=== PATIENT | female | born 1990 | race Caucasian/White ===

== ENCOUNTER → 2018-04-20 | Outpatient (CLI) | payer OTHER | END | disposition home or self-care (01) | LOC: C.LABSPEC 17:46 | PROVIDERS: ATTEND Obstetrics & Gynecology | DX: Z34.01 Encounter for supervision of normal first pregnancy, first trimester (principal) ==

== ENCOUNTER → 2018-04-28 | Outpatient (CLI) | payer OTHER ==
[2018-04-28 14:33] LABS: BASO % 0.3 %; BASO ABS # 0.03 K/uL (0-0.2); EOS % 0.4 %; EOS ABS # 0.04 K/uL (0-0.5); HEMATOCRIT 36.1 % (37-47); HEMOGLOBIN 12.6 g/dL (12.0-16.0); IG# 0.03 K/uL (0.00-0.02); LYMPH % 20.9 %; LYMPH ABS # 2.36 K/uL (1.2-3.4); MEAN CELL VOLUME 88.5 fL (80-100); MEAN CORPUSCULAR HEMOGLOBIN 30.9 pg (25-34); MEAN CORPUSCULAR HGB CONC 34.9 g/dl (32-36); MEAN PLATELET VOLUME 10.2 fL (7.4-10.4); MONO % 6.2 %; NEUT % 71.9 %; NEUT ABS # 8.14 K/uL (1.4-6.5); PLATELET COUNT 346 K/uL (130-400); RED CELL DISTRIBUTION WIDTH CV 12.5 % (11.5-14.5); RED CELL DISTRIBUTION WIDTH SD 40.6 fL (36.4-46.3)
== END | disposition home or self-care (01) ==
LOC: C.LAB1850 12:47
PROVIDERS: ATTEND Obstetrics & Gynecology
DX: Z34.01 Encounter for supervision of normal first pregnancy, first trimester (principal)

== ENCOUNTER → 2018-04-28 | Outpatient (CLI) | payer OTHER | END | disposition home or self-care (01) | LOC: C.LABSPEC 16:26 | PROVIDERS: ATTEND Obstetrics & Gynecology | DX: Z34.01 Encounter for supervision of normal first pregnancy, first trimester (principal) ==

== ENCOUNTER 2018-12-11 07:29 | Inpatient (IN) ==
[2018-12-11] MEDS ORDERED: LACTATED RINGER'S 1,000 ML IV PRN ×3 (07:41→13:13)
[2018-12-11] MEDS ORDERED: OXYTOCIN 30 UNITS/500 ML BAG IV PRN ×2 (07:41→08:53)
--- NOTE | 2018-12-11 07:54 | Labor Progress Brief Note ---
Date of Service December 11, 2018 Subjective Here for IOL for PD's. Had baez last night, which just fell out here upon readmission. No ctx, +FM, no LOF or VB. Assessment & Plan (1) Prolonged , antepartum: For IOL. GBS neg, Rh pos. Will start pitocin. Epidural on request. Physical Exam Vital Signs (Past 24 Hours): Last Vital Signs Pulse 91 H 12/11/18 07:45 BP 127/80 12/11/18 07:45 Physical Exam: Gen NAD Abd Gravid NT Cvx 4/90/-3/soft/post FHT Cat 1 [place] rare ctx
--- NOTE | 2018-12-11 08:05 | History & Physical Report ---
Date of Service December 11, 2018 Assessment & Plan (1) Prolonged , antepartum: -Fetus currently category 1 tracing. We will continue to monitor. -Currently 4 cm dilated. We will start oxytocin per regular protocol. -Vitals currently within normal limits. We will continue to monitor. - hemorrhage risk considered at low risk. We will collect a CBC, type and screen and will continue to monitor. -Plan for . A+, Rubella Immune, GBS - History of Present Illness Primary Care Provider: [facility] PCP DATE OF ADMISSION: 12/11/2018 REASON FOR ADMISSION: Induction of labor. BRIEF HISTORY: 28 y/o , currently at 40 weeks 6 days gestational age with LARISA of 12/04/2018 by LMP consistent with first trimester ultrasound. The patient presented to labor and delivery for a scheduled induction of labor. She presented yesterday evening for cervical ripening via Khan balloon and then was sent home and represents today. At time of admission, the patient was denying any regular contractions, vaginal bleeding, leakage of fluid, and reported normal movement. COURSE: The patient presented for care at approximately 8 weeks' gestational age. She has been normotensive throughout. She has negative proteinuria, negative glucosuria, total weight gain for the is approximately 64 pounds. COMPLICATIONS: None. LABS: Blood type A positive, antibody screen negative, RPR nonreactive, rubella immune, hep B surface antigen negative, HIV negative, chlamydia negative, gonorrhea negative. Anatomy scan normal and complete. Cell free DNA within normal limits. Hep group B strep negative. GYNECOLOGIC HISTORY: LMP 02/28/2018, age of menarche 9. The patient reports regular 28 day cycles with normal duration and quantity of menses within last year, prior h/o irregular menses. Denies any history of sexually transmitted infections or abnormal PAPs. PAST MEDICAL HISTORY: Unremarkable. PAST SURGICAL HISTORY: Wound Debridement b/l legs in 2011. MEDICATIONS: 1. Iron Tabs 2. vitamin 3) Unisom prn ALLERGIES: NKDA SOCIAL HISTORY: The patient denies tobacco, alcohol use, or illicit drug use. FAMILY HISTORY: FOB: Immune Skin Disorder, cousin with cerebral palsy. Father, PGM, PGF: HTN, HLD, DM. Allergies Allergy/AdvReac Type Severity Reaction Status Date / Time No Known Allergies Allergy Verified 10/04/18 16:30 Home Medications Home Medications Medication Instructions Recorded Confirmed Type [id number] fumarate-FA 1 tab PO DAILY 10/04/18 12/10/18 History [] diphenhydramine HCl [Unisom 50 mg PO HS PRN 10/04/18 12/10/18 History Sleepgels] ferrous sulfate [iron] 325 mg PO 3XWK 10/04/18 12/10/18 History Past Med/Surg History Medical History No pertinent past medical history Social History Preferred Language: [place] Zealander Communication Ability: Effective Beliefs That Will Affect Care: None marital status: Current Living Situation: Family Current Living Situation Comment: and stepdaughter (14yo) Other Information That Helps Us Care for You: No Feels Safe at Home: Yes Safety Concerns: Feels Safe At This Time Smoking Status: Never smoker Hx Alcohol Use: No Hx Substance Use: No Physical Exam Vital Signs (Past 24 Hours): Last Vital Signs Pulse 91 H 12/11/18 07:45 BP 127/80 12/11/18 07:45 Constitutional: WD/WN, vitals as above Eyes: PERRL, conjunctivae normal, anicteric sclerae ENMT: external ear and nose normal, oropharynx normal Respiratory: normal respiratory effort, lungs clear to auscultation Cardiovascular: RRR, no murmur, no edema Gastrointestinal (Abdomen): Soft, nontender, gravid Skin: no rashes, warm and dry Psychiatric: A+Ox3, euthymic affect Genitourinary: 4 cm dilated, 90% effaced, -3 station Results & Data Laboratory Results Laboratory Results - last 24 hr 12/11/18 07:52 WBC 12.89 H RBC 4.01 L Hgb 12.2 Hct 34.8 L MCV 86.8 MCH 30.4 RDW Std Deviation 44.2 RDW Coeff of Maggy 14.0 Plt Count 297 MPV 10.3 Medications Administered Current Inpatient Medications Lactated Ringer's (Lr) 1,000 mls @ 999 mls/hr IV .Q1H1M PRN PRN Reason: (Pre-Anesthesia) Stop: 01/10/19 07:40 Lactated Ringer's (Lr) 1,000 mls @ 125 mls/hr IV .Q8H HAYDEN Stop: 12/13/18 07:44 Oxytocin (Pitocin) 30 units in 500 mls @ 333.333 mls/hr IV .Q1H30M PRN; Protocol PRN Reason: Bleeding Control Stop: 01/10/19 07:40 Code Status & VTE Plan Code Status FULL Resident Activity Tracking Resident Involvement: Resident Care Provided Care Provided: OB Delivery
[2018-12-11 08:14] LABS: Hematocrit (blood only) 34.8 % (37-47); Hemoglobin 12.2 g/dL (12.0-16.0); Mean Corpuscular Volume 86.8 fL (80-100); Mean Platelet Volume 10.3 fL (7.4-10.4); Platelet Count 297 K/uL (130-400); RDW Standard Deviation 44.2 fL (36.4-46.3); Red Blood Count 4.01 M/uL (4.2-5.4); White Blood Count 12.89 K/uL (4.8-10.8)
[2018-12-11 08:16] LABS: Mean Corpuscular Hgb Conc 35.1 g/dL (32-36)
[2018-12-11] MEDS: LACTATED RINGER'S 1,000 ML IV SCH ×4 (08:45→22:39)
[2018-12-11] MEDS ORDERED: ePHEDrine sulfate 50 MG/ML AMP ONE (11:32)
[2018-12-11] MEDS ORDERED: BUPIVACAINE 0.25% 30 ML VIAL ONE (11:32)
[2018-12-11] MEDS ORDERED: fentaNYL citrate 100 MCG/2 ML VIAL ONE (11:33)
[2018-12-11] MEDS ORDERED: fentaNYL 2MCG/ML ROPIV 1.25MG/ML 100 ML BAG EPI ONE (11:33)
--- NOTE | 2018-12-11 11:56 | Anesthesiology Consultation ---
Date of Service December 11, 2018 Assessment & Plan (1) Encounter for pre-operative examination: Chart Review Chart Review: Patient NOT seen in Pre Admission Testing and Acceptable Risk for Labor Epidural Consults Requested none ASA ASA2 Proposed Anesthesia Anesthesia Type: Labor Epidural Risk / Benefits Reviewed With: PT / POA / Parent / Guardian, Accepts Plan and Informed Consent Obtained NPO Date Last Intake of Fluids: 12/10/18 Time Last Intake of Fluids: 11:56 Date Last Intake of Solids: 12/10/18 Time Last Intake of Solids: 06:15 History Height/Weight Height: 5 ft 9 in Weight: 119.204 kg Allergies Allergy/AdvReac Type Severity Reaction Status Date / Time No Known Allergies Allergy Verified 10/04/18 16:30 Medications Home Medications Medication Instructions Recorded Confirmed Last Taken [id number] fumarate-FA 1 tab PO DAILY 10/04/18 12/11/18 12/11/18 06:00 [] diphenhydramine HCl [Unisom 50 mg PO HS PRN 10/04/18 12/11/18 12/10/18 21:00 Sleepgels] ferrous sulfate [iron] 325 mg PO 3XWK 10/04/18 12/11/18 12/11/18 Active Medications Generic Name Dose Route Start Last Admin Trade Name Freq PRN Reason Stop Dose Admin Lactated Ringer's 1,000 mls @ 125 mls/hr 12/11/18 07:45 12/11/18 12:19 Lr IV 12/13/18 07:44 125 mls/hr .Q8H HAYDEN Administration Oxytocin 30 units in 500 mls @ 7 mls/hr 12/11/18 08:53 12/11/18 12:15 Pitocin IV 12/13/18 08:52 0.42 units/hr .Q24H PRN 7 mls/hr Labor Induction/Augmentation Titration Protocol 0.42 UNITS/HR Past Medical History Medical History Back pain History of injury to L3/L4 and S1 after injury at work. Per pt - neurologist said back was deteriorating No pertinent past medical history Past Surgical History Surgical History History of incision and drainage Legs Past Anesthesia History No Hx of Anesthesia Complications History of PONV No Motion Sickness Screening History of Motion Sickness: No Social History Smoking Status: Never smoker Do You Dip or Chew Tobacco: No Hx Alcohol Use: No Hx Substance Use: No substance use type: does not use Exercise / Class Metabolic Activity III < 4 Walking/Shop/Light housework Negative for chest pain or shortness of breath. Review of Systems Patient denies active symptoms of GERD. Physical Exam Vital Signs Last Vital Signs Temp 36.7 C 12/11/18 11:14 Pulse 67 12/11/18 12:59 Resp 20 12/11/18 11:14 BP 119/74 12/11/18 12:59 Pulse Ox 99 12/11/18 12:55 Constitutional + obese (Gravid uterus) ENMT Mouth: no TMJ abnormality and oral opening not small Thyromental Distance: > or= 3.5 Finger Breadths Mallampati Class: II Neck normal visual inspection; neck extension not limited Respiratory normal respiratory effort Auscultation: lungs clear to auscultation bilaterally Cardiovascular Rate/Rhythm: regular rate and regular rhythm Heart Sounds: no murmur Psychiatric A+Ox3, euthymic affect Orientation: alert and oriented x 3 Testing Laboratory Results 12/11/18 07:52
[2018-12-11] MEDS ORDERED: NALBUPHINE HCL INJ 10 MG/ML AMP IV PRN (13:13)
[2018-12-11] MEDS ORDERED: ePHEDrine sulfate 50 MG/ML AMP IV PRN (13:13)
[2018-12-11] MEDS ORDERED: NALOXONE HCL 1 MG in SODIUM CHLORIDE 0.9% 1000ML 1,000 ML IV PRN (13:13)
[2018-12-11] MEDS ORDERED: ONDANSETRON INJ 2 MG/ML 2 ML VIAL IV PRN (13:13)
[2018-12-11] MEDS ORDERED: NALOXONE HCL 0.4 MG/1 ML VIAL/CARP IV PRN (13:13)
[2018-12-11] MEDS ORDERED: DiphenhydrAMINE HCL 50 MG/ML VIAL IV PRN (13:13)
[2018-12-11] MEDS ORDERED: fentaNYL 2MCG/ML ROPIV 1.25MG/ML 100 ML BAG EPI PRN (13:13)
--- NOTE | 2018-12-11 17:33 | Labor Progress Brief Note ---
Date of Service December 11, 2018 Subjective Comfortable after epidural bolus. Very numb legs. Vaginal burning pain has stopped. Assessment & Plan (1) Prolonged , antepartum: Continue IOL Physical Exam Vital Signs (Past 24 Hours): Last Vital Signs Temp 36.7 C 12/11/18 15:20 Pulse 88 12/11/18 17:27 Resp 18 12/11/18 15:20 BP 113/57 L 12/11/18 17:27 Pulse Ox 99 12/11/18 17:25 Physical Exam: 5/100/-1 FHT Cat 2 with intermittent late ctx since bolus [place] Q3
--- NOTE | 2018-12-11 20:10 | Labor Progress Brief Note ---
Date of Service December 11, 2018 Subjective Comfortable with spidural (placed intrathecally and remains in place, see anesthesia notes) Assessment & Plan (1) Prolonged , antepartum: No cervical change, but room to increase pitocin to achieve Q2min pattern. Will continue to titrate. Present on Admission?: Yes Physical Exam Vital Signs (Past 24 Hours): Last Vital Signs Temp 36.6 C 12/11/18 17:30 Pulse 91 H 12/11/18 20:05 Resp 20 12/11/18 19:15 BP 126/74 12/11/18 20:02 Pulse Ox 100 12/11/18 20:05 Physical Exam: Cervix unchanged. [place] Q2.5-3 FHT Cat 1 (150 mod catherine +acc - dec) Pit @ 13
[2018-12-11] MEDS ORDERED: ACETAMINOPHEN 325 MG TAB PO PRN (20:18)
[2018-12-11] MEDS ORDERED: ACETAMINOPHEN 325 MG TAB ONE (20:24)
--- NOTE | 2018-12-11 21:45 | Labor Progress Brief Note ---
Date of Service December 11, 2018 Subjective Strip reviewed, RN notes reviewed. Physical Exam Vital Signs (Past 24 Hours): Last Vital Signs Temp 36.7 C 12/11/18 19:18 Pulse 96 H 12/11/18 21:40 Resp 18 12/11/18 21:30 BP 137/67 12/11/18 21:40 Pulse Ox 98 12/11/18 21:40
--- NOTE | 2018-12-12 00:35 | Labor Progress Brief Note ---
Date of Service December 12, 2018 Subjective Feeling back ache, states does not like the bed, declines pain medicine Assessment & Plan (1) Prolonged , antepartum: Progress noted on cervical exam. Patient with acceptable analgesia and de clining further bolus at this time. IUPC placed given contraction pattern not consistently Q2min despite pit @ 21. The MVU initially appear adequate. Will aim for 250 MVU, doubt increase in pitocin will be needed. If MVU significantly above goal would consider decreasing pitocin; d/w GERONIMO Can to notify me if this occurs. Physical Exam Vital Signs (Past 24 Hours): Last Vital Signs Temp 36.4 C L 12/11/18 22:11 Pulse 75 12/12/18 00:29 Resp 18 12/11/18 23:30 BP 149/84 H 12/12/18 00:29 Pulse Ox 98 12/12/18 00:25 Physical Exam: FHT Cat 1 [place] irregular, Q2-4m Cvx 6/100/+1 (feels to be significantly lower station than prior exam, and now cervix firmly stretched over head to 6cm, whereas last exam it was stretchable to 6cm by examiner but far less well applied to vertex). IUPC placed after discussion of r/b/a with patient and family. Initial MVU adequate, pit remains at 21.
[2018-12-12] MEDS ORDERED: BUPIVACAINE 0.25% 30 ML VIAL ONE (01:24)
[2018-12-12] MEDS: LACTATED RINGER'S 1,000 ML IV SCH ×2 (01:59→09:47)
--- NOTE | 2018-12-12 04:01 | Labor Progress Brief Note ---
Date of Service December 12, 2018 Subjective Patient with shivering and c/o upper back pain and not feeling well. Assessment & Plan (1) Prolonged , antepartum: Pit @ 21, MVU adequate, cervical progress continues. Patient with shivers that appear c/w entering transition, not a/w maternal fever, and pelvic discomfort that is likely associated with end of first stage labor as well. Declines additional bolus at this time, will accept tylenol for upper back and BAEZ that she again attributes to not finding the bed or position comfortable. Accepts warm blanket and repositioning assistance. Physical Exam Vital Signs (Past 24 Hours): Last Vital Signs Temp 36.8 C 12/12/18 01:34 Pulse 99 H 12/12/18 03:51 Resp 18 12/12/18 03:01 BP 141/92 H 12/12/18 03:50 Pulse Ox 100 12/12/18 03:51 Physical Exam: Maternal temp afebrile. FHT 130 mod catherine +acc +early decels [place] Q3-5 but individual contractions quite strong. Cvx 8/100/+1
--- NOTE | 2018-12-12 05:21 | Labor Progress Brief Note ---
Date of Service December 12, 2018 Subjective Continues to feel shaky, lots of upper back ache, pelvic ache. BAEZ improved. Assessment & Plan (1) Prolonged , antepartum: Labor progressing, not quite ready for second stage but close. FHT Cat 1 with early decels during contractions. BP noted to record likely spurious high value. BAEZ could be due to many factors including position, body tension / high patient anxiety through the labor p rocess, spinal; difficult to tell. DTRs normal. No other s/sx of PIH such as RUQ pain, vision changes or worsening edema. However, with BP noted and BAEZ noted, will send PIH labs. Physical Exam Vital Signs (Past 24 Hours): Last Vital Signs Temp 36.8 C 12/12/18 01:34 Pulse 75 12/12/18 05:11 Resp 18 12/12/18 04:30 BP 168/82 H 12/12/18 05:07 Pulse Ox 99 12/12/18 05:11 Physical Exam: Sitting semi-cotto's, FOB at bedside. Cvx ant lip / 100 / +2 Unable to push past lip. BP noted to record a very high value of 220s/120s during patient shivering. Recycled cuff 160s/80s with patient still shivering. DTR 1+
[2018-12-12 05:41] LABS: Basophils # (auto) 0.02 K/uL (0-0.2); Basophils % (auto) 0.1 %; Eosinophils # (auto) 0.03 K/uL (0-0.5); Eosinophils % (auto) 0.2 %; Hematocrit (blood only) 34.9 % (37-47); Immature Granulocytes # (auto) 0.09 K/uL (0.00-0.02); Immature Granulocytes % (auto) 0.5 %; Lymphocytes # (auto) 1.25 K/uL (1.2-3.4); Lymphocytes % (auto) 6.5 %; Mean Corpuscular Volume 86.4 fL (80-100); Mean Platelet Volume 10.4 fL (7.4-10.4); Monocytes # (auto) 1.45 K/uL (0.11-0.59); Monocytes % (auto) 7.5 %; Neutrophils # (auto) 16.45 K/uL (1.4-6.5); Neutrophils % (auto) 85.2 %; Platelet Count 290 K/uL (130-400); RDW Coefficient of Variation 14.3 % (11.5-14.5); Red Blood Count 4.04 M/uL (4.2-5.4); White Blood Count 19.29 K/uL (4.8-10.8)
[2018-12-12 05:47] LABS: Mean Corpuscular Hgb Conc 34.4 g/dL (32-36)
[2018-12-12 06:04] LABS: Albumin Level 2.5 gm/dl (3.4-5.0); BUN Creatinine Ratio 13.2 (10-20); Calcium 8.6 mg/dl (8.5-10.1); Creatinine Clr Calc Pharmacy 136.7 ml/min; Est GFR (African American) 109.7; Est GFR (Non-African American) 94.6; Potassium 4.1 mmol/L (3.5-5.1)
[2018-12-12 06:07] LABS: Albumin Globulin Ratio 0.6 (0.9-2); Bilirubin,Total 0.5 mg/dl (0.2-1); Globulin 4.4 gm/dl (2.5-4.0); Total Protein 6.9 gm/dl (6.4-8.2)
--- NOTE | 2018-12-12 06:30 | Labor Progress Brief Note ---
Date of Service December 12, 2018 Subjective Feeling urge to push. BAEZ improved. Back pain and pelvic pressure continue. No c/o vis chg, RUQ pain. Assessment & Plan (1) Prolonged , antepartum: Begin second stage of labor. Anterior lip remaining behind vertex after first few test pushes. FHT reassuring and c/w second stage. Dr. Chinchilla updated on patient having headache, tolerable with tylenol, and vitals/labs. Physical Exam Vital Signs (Past 24 Hours): Last Vital Signs Temp 36.8 C 12/12/18 01:34 Pulse 68 12/12/18 06:23 Resp 18 12/12/18 05:31 BP 139/63 12/12/18 06:21 Pulse Ox 94 12/12/18 06:23 Physical Exam: FHT 140 mod maggy +acc +variable with pushes [place] Q2-5 IUPC was noted to have been displaced nearly out of the cervix entirely. Removed and replaced abdominal monitor. Cvx lip/100/+2 and lip reduces behind head with pushing attempt. Vitals reviewed - BP 139/63, much improved. Normal resp rate. Labs reviewed - no evidence PIH. Leukocytosis c/w labor. Results & Data Laboratory Results Laboratory Results - last 24 hr 12/11/18 12/12/18 12/12/18 07:52 05:23 05:23 WBC 12.89 H 19.29 H RBC 4.01 L 4.04 L Hgb 12.2 12.0 Hct 34.8 L 34.9 L MCV 86.8 86.4 MCH 30.4 29.7 MCHC 35.1 34.4 RDW Std Deviation 44.2 45.0 RDW Coeff of Maggy 14.0 14.3 Plt Count 297 290 MPV 10.3 10.4 Immature Gran % (Auto) 0.5 Neut % (Auto) 85.2 Lymph % (Auto) 6.5 [place] % (Auto) 7.5 Eos % (Auto) 0.2 Baso % (Auto) 0.1 Immature Gran # (Auto) 0.09 H Neut # (Auto) 16.45 H Lymph # (Auto) 1.25 [place] # (Auto) 1.45 H Eos # (Auto) 0.03 Baso # (Auto) 0.02 Sodium 137 Potassium 4.1 Chloride 106 Carbon Dioxide 21 Anion Gap 10.0 BUN 11 Creatinine 0.83 Est Cr Clr Drug Dosing 136.7 Est GFR ( Amer) 109.7 Est GFR (Non-Af Amer) 94.6 BUN/Creatinine Ratio 13.2 Glucose 113 H Calcium 8.6 Total Bilirubin 0.5 AST 15 ALT 17 Alkaline Phosphatase 145 H Total Protein 6.9 Albumin 2.5 L Globulin 4.4 H Albumin/Globulin Ratio 0.6 L
--- NOTE | 2018-12-12 07:43 | Labor Progress Brief Note ---
Date of Service December 12, 2018 Subjective Pushing with good effort. Assessment & Plan (1) Prolonged , antepartum: Second stage effective, status acceptable to continue. Physical Exam Vital Signs (Past 24 Hours): Last Vital Signs Temp 37.2 C 12/12/18 07:19 Pulse 82 12/12/18 07:36 Resp 22 12/12/18 07:19 BP 149/70 H 12/12/18 07:06 Pulse Ox 97 12/12/18 07:36 Physical Exam: Patient reassessed at 0645 and again at 0730. Both times has made progress from prior check. At last exam, scalp visible when labia parted. FHT baseline 165 with variables during pushing, moderate variability and accels remain present.
--- NOTE | 2018-12-12 08:04 | Labor Progress Brief Note ---
Date of Service December 12, 2018 Subjective pushing well Assessment & Plan (1) Prolonged , antepartum: Progress continues. FHT acceptable for second stage. Physical Exam Vital Signs (Past 24 Hours): Last Vital Signs Temp 37.2 C 12/12/18 07:19 Pulse 81 12/12/18 07:56 Resp 22 12/12/18 07:19 BP 142/67 H 12/12/18 07:56 Pulse Ox 98 12/12/18 07:56 Physical Exam: FHT 165 mod catherine +acc +variables with pushes [place] Q2-3 scalp now visible between labia without touching or parting maternal skin during pushes.
[2018-12-12] MEDS ORDERED: COSYNTROPIN IV ONE (08:45)
[2018-12-12] MEDS ORDERED: LACTATED RINGER'S 1,000 ML IV SCH ×3 (08:45→10:53)
[2018-12-12] MEDS ORDERED: SODIUM CHLORIDE 0.9% IV ONE (08:45)
--- NOTE | 2018-12-12 08:52 | Labor Progress Brief Note ---
Date of Service December 12, 2018 Subjective Patient stating she is too exhausted to continue pushing, refusing to make further efforts. Assessment & Plan (1) Prolonged , antepartum: IOL achieved complete dilation, second stage 2.25 hours brought caput to but in DOP position, and head remains displaceable upwards, and mom exhausted without willingness to continue. At this point options reviewed with patient including continue to push or move to , and she immediately states she wants to proceed to . Consent form reviewed in detail with patient and FOB, questions answered. Physical Exam Vital Signs (Past 24 Hours): Last Vital Signs Temp 37.2 C 12/12/18 07:19 Pulse 84 12/12/18 08:42 Resp 22 12/12/18 07:19 BP 126/70 12/12/18 08:37 Pulse Ox 97 12/12/18 08:42 Physical Exam: scalp remains visible 1cm wide at the most between labia with pushes. However, palpation shows significant caput. Fetus in DOP position. Fluid leakage remains clear, and in particular it is noted that head can be displaced upwards allowing a flow of amniotic fluid relatively easily. FHT 170 mod catherine +acc -dec after pushing stopped Pit turned off [place] q3
[2018-12-12] MEDS ORDERED: MoRPHine SULFATE PF 1 MG/ML 10 ML AMP/VIAL ONE (08:58)
[2018-12-12] MEDS ORDERED: OXYTOCIN 10 UNITS/ML VIAL ONE (08:58)
[2018-12-12] MEDS ORDERED: fentaNYL citrate 100 MCG/2 ML VIAL ONE (08:58)
[2018-12-12] MEDS ORDERED: CITRIC ACID/SODIUM CITRATE 15 ML UDC ONE (08:59)
[2018-12-12] MEDS ORDERED: CEFAZOLIN 3000MG 65 ML IV SCH (09:00)
[2018-12-12] MEDS ORDERED: ONDANSETRON INJ 2 MG/ML 2 ML VIAL ONE (09:27)
[2018-12-12] MEDS ORDERED: LACTATED RINGER'S 500 ML IV PRN (09:35)
[2018-12-12] MEDS ORDERED: NALOXONE HCL 0.4 MG/1 ML VIAL/CARP IV PRN (09:35)
[2018-12-12] MEDS ORDERED: PROMETHAZINE HCL 12.5 MG in SODIUM CHLORIDE 0.9% 50 ML IV PRN (09:35)
[2018-12-12] MEDS ORDERED: MoRPHine SULFATE PF 1 MG/ML 10 ML AMP/VIAL INT SPINAL ONE (09:35)
[2018-12-12] MEDS ORDERED: NALOXONE HCL 0.08 MG in SYRINGE 1.8 ML IV PRN (09:35)
[2018-12-12] MEDS ORDERED: ATROPINE SULFATE 0.1 MG/ML 10ML SYR IV PRN (09:35)
[2018-12-12] MEDS ORDERED: PROMETHAZINE HCL 25 MG in SODIUM CHLORIDE 0.9% 50 ML IV PRN (09:35)
[2018-12-12] MEDS ORDERED: MoRPHine SULFATE 2 MG/ML CARP IV PRN (09:35)
[2018-12-12] MEDS ORDERED: PHENYLEPHRINE 100MCG/ML 5ML SYR IV PRN (09:35)
[2018-12-12] MEDS ORDERED: DiphenhydrAMINE HCL 50 MG/ML VIAL IV PRN (09:35)
[2018-12-12] MEDS ORDERED: NALOXONE HCL 1 MG in SODIUM CHLORIDE 0.9% 1000ML 1,000 ML IV PRN (09:35)
[2018-12-12] MEDS ORDERED: NALBUPHINE HCL INJ 10 MG/ML AMP IV PRN (09:35)
[2018-12-12] MEDS ORDERED: fentaNYL citrate 100 MCG/2 ML VIAL IV PRN (09:35)
[2018-12-12] MEDS ORDERED: ONDANSETRON INJ 2 MG/ML 2 ML VIAL IV PRN ×2 (09:35)
[2018-12-12] MEDS ORDERED: ePHEDrine sulfate 50 MG/ML AMP IV PRN ×2 (09:35)
--- NOTE | 2018-12-12 09:35 | Anesthesiology Consultation ---
Date of Service December 12, 2018 Assessment & Plan Chart Review Chart Review: Acceptable Risk for Surgery and Patient NOT seen in Pre Admission Testing Consults Requested none ASA ASA2E Proposed Anesthesia Anesthesia Type: Spinal (Pt with existing intrathecal catheter) Risk / Benefits Reviewed With: PT / POA / Parent / Guardian, Accepts Plan and Informed Consent Obtained NPO Date Last Intake of Fluids: 12/11/18 Time Last Intake of Fluids: 07:30 Last Intake of Fluids Comment: Ice chips Date Last Intake of Solids: 12/11/18 Time Last Intake of Solids: 23:59 History Surgery Operation Date: 12/12/18 09:00 Proposed Procedures p Section in LD - Inés Churchill MD Height/Weight Height: 1.75 m Weight: 119.204 kg Allergies Allergy/AdvReac Type Severity Reaction Status Date / Time No Known Allergies Allergy Verified 10/04/18 16:30 Medications Home Medications Medication Instructions Recorded Confirmed Last Taken [id number] fumarate-FA 1 tab PO DAILY 10/04/18 12/11/18 12/11/18 06:00 [] diphenhydramine HCl [Unisom 50 mg PO HS PRN 10/04/18 12/11/18 12/10/18 21:00 Sleepgels] ferrous sulfate [iron] 325 mg PO 3XWK 10/04/18 12/11/18 12/11/18 Active Medications Generic Name Dose Route Start Last Admin Trade Name Freq PRN Reason Stop Dose Admin Acetaminophen 650 mg 12/11/18 20:18 12/12/18 03:58 Tylenol PO 01/10/19 20:17 650 mg Q4H PRN Administration headache Lactated Ringer's 1,000 mls @ 125 mls/hr 12/11/18 07:45 12/12/18 07:00 Lr IV 01/11/19 07:44 125 mls/hr .Q8H HAYDEN Infusion Oxytocin 30 units in 500 mls @ 21 mls/hr 12/11/18 08:53 12/12/18 07:00 Pitocin IV 12/13/18 08:52 1.26 units/hr .[id number] PRN 21 mls/hr Labor Induction/Augmentation Titration Protocol 1.26 UNITS/HR Ondansetron HCl 4 mg 12/11/18 13:13 12/12/18 05:42 Zofran IV 12/12/18 13:12 4 mg Q6H PRN Administration Nausea And Vomiting Ropivacaine 100 ml 12/11/18 13:13 12/12/18 07:19 Epidural (L&D) EPI 12/12/18 13:12 100 ml PRN PRN Administration Pain R/T Labor Protocol Past Medical History Medical History Back pain History of injury to L3/L4 and S1 after injury at work. Per pt - neurologist said back was deteriorating No pertinent past medical history Past Surgical History Surgical History History of incision and drainage Legs Past Anesthesia History No Hx of Anesthesia Complications and No Family Hx of Anesthesia Complications History of PONV No Motion Sickness Screening History of Motion Sickness: No Social History Smoking Status: Never smoker Do You Dip or Chew Tobacco: No Hx Alcohol Use: No Hx Substance Use: No substance use type: does not use Exercise / Class Metabolic Activity III < 4 Walking/Shop/Light housework Physical Exam Vital Signs Last Vital Signs Temp 36.8 C 12/12/18 08:50 Pulse 84 12/12/18 08:57 Resp 22 12/12/18 08:50 BP 126/70 12/12/18 08:37 Pulse Ox 97 12/12/18 08:57 ENMT Mouth: no TMJ abnormality and no TMJ clicking Thyromental Distance: > or= 3.5 Finger Breadths Mallampati Class: II Neck normal visual inspection; neck extension not limited Respiratory Auscultation: lungs clear to auscultation bilaterally Cardiovascular Rate/Rhythm: regular rate and regular rhythm Musculoskeletal Spine: normal cervical ROM Psychiatric Orientation: alert and oriented x 3 Testing Laboratory Results 12/12/18 05:23 12/12/18 05:23
[2018-12-12] MEDS ORDERED: NO NARCOTICS OR SEDATIVES SCH (09:45)
[2018-12-12] MEDS ORDERED: SODIUM CHLORIDE 0.9% 1000ML 1,000 ML IV SCH (09:45)
--- NOTE | 2018-12-12 10:09 | Post Operative Brief Note ---
Immediate Post Op Note v1 Date of Surgery December 12, 2018 Pre & Post Diagnosis Operation Date: 12/12/18 09:00 <No data on this case meets the specified criteria> [facility]UP @ Post Term Induction of labor Failure to progress Maternal exhaustion Procedure Operation Date: 12/12/18 09:00 <No data on this case meets the specified criteria> Primary section with T-incision and L cervical extension. Patient accompanied to PACU by surgeon. Surgeon Inés Churchill MD Manufacturing Sr Engineer [place] Estimated Blood Loss 650 Findings Consistent with Post-Op Diagnosis
[2018-12-12] MEDS ORDERED: BENZOCAINE 20% AER SPR 82.5 GM CAN EXT PRN (10:53)
[2018-12-12] MEDS ORDERED: SUPERCREAM 0.870% 15 GM JAR EXT PRN (10:53)
[2018-12-12] MEDS ORDERED: MAGNESIUM HYDROXIDE SUSP 30 ML UDC PO PRN (10:53)
[2018-12-12] MEDS ORDERED: HYDROCORTISONE ACETATE 25 MG SUPP PR PRN (10:53)
[2018-12-12] MEDS ORDERED: SENNA 8.6 MG TAB PO PRN (10:53)
[2018-12-12] MEDS ORDERED: DIPHTHERIA/TETANUS/PERTUSSIS 0.5 ML SYR/VIAL IM ONE (10:53)
[2018-12-12] MEDS ORDERED: OXYTOCIN 30 UNITS in LACTATED RINGER'S 1,000 ML IV SCH (11:30)
--- NOTE | 2018-12-12 11:35 | Anesthesiology Progress Note ---
Date of Service December 12, 2018 Anesthesia Post Procedure Vital Signs Vital Signs: Temp Pulse Resp BP Pulse Ox 12/12/18 11:29 72 99 12/12/18 11:25 71 116/65 12/12/18 11:24 69 99 12/12/18 11:19 67 99 12/12/18 11:16 74 111/58 L 12/12/18 11:14 74 99 12/12/18 11:09 71 99 12/12/18 11:05 73 110/58 L 12/12/18 11:04 75 98 12/12/18 10:59 75 97 12/12/18 10:55 75 113/60 12/12/18 10:54 78 97 12/12/18 10:49 94 H 98 12/12/18 10:47 96 H 94 12/12/18 10:45 84 112/58 L 12/12/18 10:44 91 H 97 12/12/18 10:39 79 97 12/12/18 10:36 82 113/64 12/12/18 10:34 85 98 12/12/18 10:29 88 97 12/12/18 10:26 91 H 110/64 12/12/18 10:24 92 H 97 12/12/18 10:19 84 96 12/12/18 10:15 86 118/68 12/12/18 10:14 95 H 93 12/12/18 08:57 84 97 12/12/18 08:52 101 H 97 12/12/18 08:50 36.8 C 22 12/12/18 08:47 86 97 12/12/18 08:42 84 97 12/12/18 08:41 106 H 93 12/12/18 08:37 112 H 126/70 97 12/12/18 08:32 104 H 98 12/12/18 08:27 115 H 97 12/12/18 08:22 106 H 98 12/12/18 08:21 105 H 20 127/62 12/12/18 08:17 93 H 97 12/12/18 08:12 111 H 97 12/12/18 08:07 117 H 96 12/12/18 08:05 84 22 142/67 H 12/12/18 08:02 118 H 92 12/12/18 08:01 82 98 12/12/18 07:56 81 22 142/67 H 98 12/12/18 07:51 92 H 97 12/12/18 07:46 84 98 12/12/18 07:41 89 98 12/12/18 07:36 82 97 12/12/18 07:32 73 94 12/12/18 07:31 76 97 12/12/18 07:26 81 96 12/12/18 07:22 97 H 91 12/12/18 07:21 89 97 12/12/18 07:19 37.2 C 22 12/12/18 07:16 90 98 12/12/18 07:12 87 92 12/12/18 07:11 75 96 12/12/18 07:06 94 H 22 149/70 H 97 12/12/18 07:04 95 H 92 12/12/18 07:01 81 98 12/12/18 06:59 18 12/12/18 06:56 77 98 12/12/18 06:53 84 90 12/12/18 06:51 84 130/72 97 12/12/18 06:46 94 H 98 12/12/18 06:41 81 92 12/12/18 06:40 37.0 C 12/12/18 06:36 72 134/63 97 12/12/18 06:31 75 18 98 12/12/18 06:26 70 98 12/12/18 06:23 68 94 12/12/18 06:21 73 139/63 97 12/12/18 06:16 93 H 100 12/12/18 06:11 86 97 12/12/18 06:06 76 97 12/12/18 06:05 76 164/84 H 12/12/18 06:01 76 97 12/12/18 05:56 69 97 12/12/18 05:52 75 165/82 H 12/12/18 05:51 85 97 12/12/18 05:46 74 98 12/12/18 05:41 73 98 12/12/18 05:36 81 98 12/12/18 05:35 77 151/85 H 12/12/18 05:31 79 18 148/82 H 98 12/12/18 05:29 75 196/95 H 12/12/18 05:26 71 99 12/12/18 05:21 75 97 12/12/18 05:16 80 99 12/12/18 05:11 75 99 03/16/19 05:07 90 168/82 H 12/12/18 05:06 93 H 187/98 H 97 12/12/18 05:01 75 100 12/12/18 04:56 80 99 12/12/18 04:52 76 223/124 H 12/12/18 04:51 76 96 12/12/18 04:46 81 98 12/12/18 04:41 87 99 12/12/18 04:36 85 164/97 H 100 12/12/18 04:31 75 99 12/12/18 04:30 18 12/12/18 04:26 76 98 12/12/18 04:21 80 100 12/12/18 04:20 81 151/89 H 12/12/18 04:16 73 98 12/12/18 04:11 79 100 12/12/18 04:06 85 100 12/12/18 04:05 80 146/85 H 12/12/18 04:01 85 100 12/12/18 03:56 82 99 12/12/18 03:51 99 H 100 12/12/18 03:50 96 H 141/92 H 12/12/18 03:46 78 100 12/12/18 03:41 87 100 12/12/18 03:36 87 138/76 100 12/12/18 03:31 72 98 12/12/18 03:30 18 12/12/18 03:26 77 97 12/12/18 03:21 78 95 12/12/18 03:20 78 122/59 L 94 12/12/18 03:16 79 96 12/12/18 03:11 81 96 12/12/18 03:06 77 95 12/12/18 03:05 78 120/58 L 93 12/12/18 03:01 79 18 96 12/12/18 02:56 76 96 12/12/18 02:51 76 119/61 97 12/12/18 02:45 77 97 12/12/18 02:40 77 97 12/12/18 02:35 79 117/68 100 12/12/18 02:30 79 18 100 12/12/18 02:25 93 H 100 12/12/18 02:20 80 136/81 99 12/12/18 02:15 81 99 12/12/18 02:10 95 H 99 12/12/18 02:06 83 84 L 12/12/18 02:05 91 H 136/76 100 12/12/18 02:00 93 H 18 99 12/12/18 01:59 73 141/80 H 12/12/18 01:57 82 141/77 H 12/12/18 01:55 92 H 133/75 99 12/12/18 01:53 83 135/76 12/12/18 01:51 81 134/75 12/12/18 01:50 89 99 12/12/18 01:48 73 150/79 H 12/12/18 01:47 82 147/89 H 12/12/18 01:45 75 143/76 H 99 12/12/18 01:43 81 143/77 H 12/12/18 01:41 77 145/77 H 12/12/18 01:40 84 98 12/12/18 01:39 75 141/75 H 12/12/18 01:37 74 144/78 H 12/12/18 01:35 86 139/75 98 12/12/18 01:34 36.8 C 18 12/12/18 01:33 77 135/74 12/12/18 01:31 77 148/80 H 12/12/18 01:30 79 99 12/12/18 01:29 75 139/75 12/12/18 01:28 85 135/77 12/12/18 01:25 79 99 12/12/18 01:23 77 141/82 H 12/12/18 01:20 76 98 12/12/18 01:15 80 98 12/12/18 01:10 82 98 12/12/18 01:09 81 136/74 12/12/18 01:05 83 99 12/12/18 01:00 79 98 12/12/18 00:55 73 97 12/12/18 00:53 78 130/69 12/12/18 00:50 79 97 12/12/18 00:45 77 97 12/12/18 00:40 73 97 12/12/18 00:38 81 129/68 12/12/18 00:35 80 98 12/12/18 00:30 77 18 97 12/12/18 00:29 75 149/84 H 12/12/18 00:25 86 98 12/12/18 00:20 79 98 12/12/18 00:19 83 130/74 12/12/18 00:15 93 H 99 12/12/18 00:10 78 95 12/12/18 00:09 75 140/80 12/12/18 00:05 79 95 12/12/18 00:00 74 97 12/11/18 23:59 74 133/75 12/11/18 23:55 76 97 12/11/18 23:50 73 132/72 97 12/11/18 23:45 79 97 12/11/18 23:40 81 133/75 97 12/11/18 23:35 89 97 12/11/18 23:30 83 18 127/74 98 12/11/18 23:25 78 97 12/11/18 23:20 90 97 12/11/18 23:19 87 134/69 12/11/18 23:15 77 96 12/11/18 23:10 78 97 12/11/18 23:09 74 134/74 12/11/18 23:05 79 96 12/11/18 23:01 18 12/11/18 23:00 94 H 98 12/11/18 22:59 80 131/73 12/11/18 22:55 80 96 12/11/18 22:50 74 96 12/11/18 22:49 75 131/74 12/11/18 22:45 81 98 12/11/18 22:40 80 97 12/11/18 22:39 80 124/70 12/11/18 22:35 95 H 97 12/11/18 22:30 89 18 98 12/11/18 22:29 88 138/77 12/11/18 22:25 93 H 98 12/11/18 22:20 92 H 96 12/11/18 22:19 100 H 135/78 12/11/18 22:15 98 H 98 12/11/18 22:11 36.4 C L 12/11/18 22:10 96 H 98 12/11/18 22:09 87 133/84 12/11/18 22:05 95 H 98 12/11/18 22:00 100 H 99 12/11/18 21:59 87 123/74 12/11/18 21:55 104 H 99 12/11/18 21:50 100 H 96 03/15/19 21:49 90 121/71 03/15/19 21:45 98 H 98 12/11/18 21:40 96 H 137/67 98 12/11/18 21:35 95 H 98 12/11/18 21:30 96 H 18 125/66 97 12/11/18 21:25 97 H 97 12/11/18 21:20 90 98 12/11/18 21:19 106 H 114/70 12/11/18 21:15 96 H 95 12/11/18 21:10 91 H 98 12/11/18 21:09 101 H 111/65 12/11/18 21:05 96 H 99 12/11/18 21:00 93 H 18 98 12/11/18 20:59 89 124/71 12/11/18 20:55 79 97 12/11/18 20:50 110 H 99 12/11/18 20:49 96 H 126/84 12/11/18 20:45 99 H 99 12/11/18 20:40 101 H 119/72 99 12/11/18 20:35 108 H 100 12/11/18 20:30 107 H 18 100 12/11/18 20:28 104 H 123/75 12/11/18 20:25 98 H 97 12/11/18 20:23 100 H 131/78 12/11/18 20:20 85 97 12/11/18 20:17 84 131/77 12/11/18 20:15 89 98 12/11/18 20:12 87 127/79 12/11/18 20:10 81 99 12/11/18 20:08 96 H 128/76 12/11/18 20:05 91 H 100 12/11/18 20:03 107 H 90 12/11/18 20:02 109 H 126/74 12/11/18 20:00 99 H 100 12/11/18 19:57 106 H 128/76 12/11/18 19:55 84 100 12/11/18 19:53 93 H 134/73 12/11/18 19:50 99 H 100 12/11/18 19:47 103 H 124/73 12/11/18 19:45 106 H 100 12/11/18 19:43 97 H 123/72 12/11/18 19:40 102 H 100 12/11/18 19:38 99 H 114/74 12/11/18 19:35 98 H 100 12/11/18 19:32 114 H 124/71 12/11/18 19:30 85 18 96 12/11/18 19:27 114 H 118/63 12/11/18 19:25 97 H 100 12/11/18 19:24 97 H 131/64 12/11/18 19:20 73 100 12/11/18 19:18 36.7 C 18 12/11/18 19:17 99 H 123/76 12/11/18 19:15 84 20 100 12/11/18 19:12 97 H 116/68 12/11/18 19:10 77 100 12/11/18 19:08 84 129/76 12/11/18 19:05 90 100 12/11/18 19:02 88 123/74 12/11/18 19:00 90 100 12/11/18 18:57 107 H 118/74 12/11/18 18:55 101 H 100 12/11/18 18:53 95 H 115/69 12/11/18 18:50 100 H 100 12/11/18 18:48 87 129/67 12/11/18 18:45 88 100 12/11/18 18:44 20 12/11/18 18:42 77 127/69 12/11/18 18:40 73 100 12/11/18 18:38 73 132/72 12/11/18 18:35 96 H 100 12/11/18 18:34 78 121/73 12/11/18 18:30 81 100 12/11/18 18:28 93 H 123/66 12/11/18 18:25 79 100 12/11/18 18:23 82 111/70 12/11/18 18:20 80 20 100 12/11/18 18:17 98 H 115/73 12/11/18 18:14 88 111/61 12/11/18 18:10 90 100 12/11/18 18:08 88 114/65 12/11/18 18:07 78 92 12/11/18 18:05 89 20 99 12/11/18 18:02 86 114/62 12/11/18 18:00 78 99 12/11/18 17:58 86 130/63 12/11/18 17:55 89 99 12/11/18 17:52 86 124/71 12/11/18 17:50 87 20 98 12/11/18 17:48 80 118/65 12/11/18 17:45 92 H 98 12/11/18 17:44 81 127/59 L 12/11/18 17:40 101 H 98 12/11/18 17:39 113/86 12/11/18 17:35 78 20 98 12/11/18 17:33 76 109/63 12/11/18 17:31 73 94 12/11/18 17:30 36.6 C 77 98 12/11/18 17:27 88 113/57 L 12/11/18 17:25 92 H 99 12/11/18 17:24 78 90 12/11/18 17:20 92 H 20 98 12/11/18 17:17 77 118/64 12/11/18 17:15 76 95 12/11/18 17:12 73 116/64 12/11/18 17:10 85 97 12/11/18 17:07 82 116/67 12/11/18 17:05 83 20 96 12/11/18 17:02 86 111/65 12/11/18 17:00 87 97 12/11/18 16:57 85 114/65 12/11/18 16:55 87 97 12/11/18 16:50 83 20 107/57 L 96 12/11/18 16:48 85 107/59 L 12/11/18 16:47 85 104/59 L 12/11/18 16:45 80 97 12/11/18 16:44 72 128/68 12/11/18 16:43 64 127/60 12/11/18 16:41 71 123/80 12/11/18 16:40 84 99 12/11/18 16:39 79 114/56 L 12/11/18 16:37 73 95/58 L 12/11/18 16:35 80 20 107/52 L 97 12/11/18 16:32 78 110/54 L 12/11/18 16:30 79 119/57 L 96 12/11/18 16:28 93 H 127/62 12/11/18 16:27 104 H 137/58 L 12/11/18 16:25 88 148/82 H 98 12/11/18 16:20 87 20 101/64 99 12/11/18 16:15 90 135/72 100 12/11/18 16:11 69 132/74 12/11/18 16:10 68 98 12/11/18 16:06 67 133/71 12/11/18 16:05 81 20 99 12/11/18 16:01 68 132/71 12/11/18 16:00 72 99 12/11/18 15:56 67 133/74 12/11/18 15:55 68 100 12/11/18 15:50 72 20 114/71 99 12/11/18 15:47 73 137/72 12/11/18 15:45 76 100 12/11/18 15:40 76 112/71 99 12/11/18 15:35 85 20 111/61 99 12/11/18 15:30 79 110/66 99 12/11/18 15:26 78 111/69 12/11/18 15:25 80 99 12/11/18 15:20 36.7 C 92 H 18 135/78 98 12/11/18 15:15 87 137/78 98 12/11/18 15:10 82 122/64 97 12/11/18 15:06 73 20 125/65 12/11/18 15:05 72 98 12/11/18 15:00 81 123/63 98 12/11/18 14:55 94 H 114/57 L 98 12/11/18 14:50 92 H 115/58 L 99 12/11/18 14:45 90 98 12/11/18 14:43 90 118/62 12/11/18 14:41 78 118/68 12/11/18 14:40 88 20 98 12/11/18 14:39 84 119/64 12/11/18 14:37 97 H 117/55 L 12/11/18 14:35 86 123/70 100 12/11/18 14:33 77 128/72 12/11/18 14:31 96 H 128/83 12/11/18 14:30 79 100 12/11/18 14:29 77 131/83 12/11/18 14:25 70 20 100 12/11/18 14:23 79 122/66 12/11/18 14:20 73 100 12/11/18 14:15 88 100 12/11/18 14:10 82 100 12/11/18 14:07 72 131/75 12/11/18 14:05 75 20 99 12/11/18 14:02 85 133/75 12/11/18 14:00 83 99 12/11/18 13:57 90 120/70 12/11/18 13:55 93 H 100 12/11/18 13:52 85 126/73 12/11/18 13:50 89 20 99 12/11/18 13:48 81 121/69 12/11/18 13:45 90 98 12/11/18 13:42 89 109/62 12/11/18 13:40 94 H 99 12/11/18 13:39 88 108/59 L 12/11/18 13:38 86 111/58 L 12/11/18 13:35 94 H 20 98 12/11/18 13:32 87 99/56 L 12/11/18 13:30 87 20 99 12/11/18 13:29 80 106/62 12/11/18 13:25 87 99 12/11/18 13:22 86 108/64 12/11/18 13:20 80 98 12/11/18 13:17 87 106/66 12/11/18 13:15 84 20 108/67 98 12/11/18 13:13 95 H 105/62 12/11/18 13:11 92 H 102/62 12/11/18 13:10 86 99 12/11/18 13:09 86 105/60 12/11/18 13:07 88 110/64 12/11/18 13:05 78 113/71 99 12/11/18 13:03 82 114/72 12/11/18 13:01 76 20 114/73 12/11/18 13:00 71 100 12/11/18 12:59 67 119/74 12/11/18 12:57 69 116/69 12/11/18 12:55 64 124/72 99 12/11/18 12:50 76 99 12/11/18 12:47 20 12/11/18 12:45 123 H 100 12/11/18 12:44 122 H 108/69 12/11/18 12:40 111 H 99 12/11/18 12:35 98 H 98 12/11/18 12:30 92 H 100 12/11/18 12:25 87 99 12/11/18 12:20 82 99 12/11/18 12:19 81 135/85 12/11/18 12:15 77 99 12/11/18 12:10 93 H 98 12/11/18 12:05 97 H 99 12/11/18 12:00 93 H 99 12/11/18 11:55 80 100 12/11/18 11:50 72 100 12/11/18 11:45 66 99 Pain Intensity Abdomen: Pain Intensity: 0 Notes Mental Status: alert / awake / arousable Patient Amnestic to Procedure: Yes Nausea / Vomiting: adequately controlled Pain: adequately controlled Airway Patency, RR, SpO2: stable & adequate BP & HR: stable & adequate Neuraxial Anesthesia: was administered and sensory block is resolving Anesthetic Complications: no major complications apparent Notes: Pt doing well. C/o mild BAEZ (2/10) which is similar to what she has had previously. Pt is being given 1mg cosyntropin IV for prophylactic against PDPH. Will continue to follow up on patients progress.
[2018-12-12 11:39] LABS: Base Excess Cord Arterial Bld -11.4 mEq/L (-9-1.8); CO2 Cord Arterial Blood 66 mmHg (39.1-73.5); HCO3 Cord Arterial Blood 20 mmol/L (19.7-28.5)
[2018-12-12 11:40] LABS: Base Excess Cord Venous Blood -8.5 mEq/L (-7.7-1.9); Cord Venous Blood HCO3 20 mmol/L (18.4-26.8); Cord Venous Blood PCO2 48 mmHg (30.4-57.2); Cord Venous Blood PO2 24 mmHg (14.1-43.3); Cord Venous Blood pH 7.22 (7.20-7.44); O2 Saturation Cord Venous Bld < 60.0 % (<68)
[2018-12-12] MEDS: KETOROLAC 30 MG/ML VIAL IV PRN ×2 (12:18→19:15)
[2018-12-12] MEDS: SIMETHICONE 80 MG CHEW PO SCH ×3 (13:57→21:56)
[2018-12-12] MEDS: MEPERIDINE HCL 25 MG/ML CARP IV PRN ×2 (15:42→23:42)
--- NOTE | 2018-12-12 21:32 | Obstetrical Progress Note ---
Date of Service December 12, 2018 Subjective I was asked to see/speak to patient to listen to some of her concerns regarding her care. I went to patient's room with nursing supervisor painting shipyard Sandra Hoyos. Patient expressed that she feels like "everything is going wrong." She had expectations about labor that have not been met - she did not expect to labor for as long as she did, approx 24h. She had complication with epidural, and is very worried that she could require a blood patch. She felt like everything that could possibly go wrong, went wrong. She did not anticipate the complication with epidural, or needing a , or difficult delivery requiring T-incision of uterus, or baby needing antibiotics. I listened to patient's complaints. We discussed that today was incredibly stressful, and I think patient will begin to feel better when she is able to walters with her baby more. She is going to the nursery to visit baby next. Physical Exam Vital Signs (Past 24 Hours): Last Vital Signs Temp 36.8 C 12/12/18 19:05 Pulse 83 12/12/18 19:05 Resp 18 12/12/18 20:15 BP 132/78 12/12/18 19:05 Pulse Ox 98 12/12/18 20:15
--- NOTE | 2018-12-12 21:45 | Operative Report ---
DATE OF OPERATION: 12/12/2018 PREOPERATIVE DIAGNOSES: 1. Logan intrauterine at postdates. 2. Induction of labor. 3. Failure to progress. 4. Maternal exhaustion. POSTOPERATIVE DIAGNOSES: 1. Logan intrauterine at postdates. 2. Induction of labor. 3. Failure to progress. 4. Maternal exhaustion. PROCEDURE: section with T incision of the uterus and left cervical extension. SURGEON: Inés Churchill MD SIGNAL MANAGER: Sagrario Gayle DO ESTIMATED BLOOD LOSS: 650 mL DISPOSITION: Stable to labor and delivery. DESCRIPTION: Clair was brought to the operating room, placed on the table in the supine position with a leftward tilt and prepped and draped in standard sterile fashion and a hard time-out was taken prior to proceeding. Please note that a cervical vaginal exam was performed with a sterile glove immediately before surgical prep after the patient was positioned on the OR table and there was felt to be no additional progress with the head displaceable upwards. Once the patient was prepped and draped, a hard time-out was taken with pediatrics in the room and adequate anesthesia was tested and found to be present. A Pfannenstiel incision was created sharply and carried down through the subcutaneous tissue to the fascia, which was nicked and then this was extended using Allen scissors. Osvaldo clamps were placed on the superior edges of the fascia which was sharply and bluntly dissected off the underlying rectus. The Osvaldo's were removed to the inferior edge of the fascia which was similarly sharply and bluntly dissected off the rectus. The midline of the rectus was identified and bluntly . The peritoneum was bluntly entered. The bladder retractor was placed and a bladder flap was created. The transverse uterine incision was created with final entry to the uterus being made in a blunt manner using the surgeon's finger. Lightly meconium stained fluid was then encountered. Of note, prior to this time fluid had been clear. The hysterotomy was extended laterally using blunt pressure from the surgeon's fingers. Umbilical cord and upper extremities were immediately encountered and began to protrude through the hysterotomy. These were gently replaced in a physiologic manner. The surgeon's hand was introduced into the lower uterine segment, and the vertex was encountered in the direct occiput posterior position. Attempts to gently elevate the head while maintaining flexion were unsuccessful. A sterile gloved hand placed from below was still not able to achieve elevation of the vertex to the hysterotomy. The upper extremities continued to repeatedly protrude through the hysterotomy and need to be gently replaced. It was felt that further attempts to elevate the vertex were unlikely to succeed. Therefore, a T incision was made using bandage scissors. The feet were identified and delivered through the hysterotomy. A gentle attempt was made to deliver the breech of the ; however, this was not possible through the incision already created. Therefore, bandage scissors were used to further extend its incision. This finally allowed delivery of the feet then the breech rolling the forward maintaining the spine, head and neck in flexion. Finally, the vertex was then able to be gently delivered through the hysterotomy. The was placed on the field while the cord was doubly clamped and cut and the infant was immediately taken to the warmer for pediatric attention. Cord segment was isolated for collection of cord gases and the placenta was then manually extracted. The uterus was gently exteriorized from the abdomen. The angles of the incisions were identified using Allis clamps and the interior of the uterus was cleared of clot and debris using a dry lap sponge. Tubes and ovaries were seen to be normal bilaterally. There was noted to be the transverse uterine incision in the lower uterine segment as well as a 2 cm left cervical extension and a midline vertical extension to near the fundus. Repair began with the vertical extension, 0 Vicryl suture was used in a running locked manner to close the myometrial layer down to the transverse incision. The left cervical extension was similarly closed from its apex back to the transverse incision and then the lower uterine segment transverse incision was also closed in the usual running locked manner. A second imbricating layer of Vicryl was then used again starting at the top of the vertical midline incision in a baseball stitch manner to apply pressure. This was then tied at the point where this met the transverse incision, which was found to be hemostatic and did not require further suture. The posterior gutter was cleared of clot and debris and the uterus was gently reinternalized to the abdomen. The lateral gutters were packed with lap sponges. Favio was applied to the anterior uterine surface and 3 minutes of pressure were applied to ensure good hemostasis. Of note, immediately after delivery of the placenta, uterine tone was noted to be excellent. Once the 3 minutes of favio application was done, the lap sponges were removed. Hemostasis was observed to be present at all working sites. The fascia was then closed using 1 Vicryl in a running nonlocked manner. At the completion of the repair, the fascia was examined and found to be free of defect. Subcutaneous tissue was copiously irrigated and then closed using 3-0 chromic, 4-0 Monocryl was used to close the skin layer in a subcuticular fashion and a Dermabond dressing was applied. The patient was then transferred in stable condition to recovery room. I attest to the content of the Intraoperative Record and any orders documented therein. Any exceptions are noted below. MTDD
[2018-12-12] MEDS: DOCUSATE SODIUM 100 MG CAP PO SCH (21:56)
--- NOTE | 2018-12-12 21:59 | Anesthesiology Progress Note ---
Date of Service December 12, 2018 Anesthesia Post Procedure Vital Signs Vital Signs: Temp Pulse Pulse Resp BP BP Pulse Ox 12/12/18 21:45 18 99 12/12/18 20:15 18 98 12/12/18 19:30 18 98 12/12/18 19:05 36.8 C 83 18 132/78 98 12/12/18 18:30 18 97 12/12/18 17:30 18 97 12/12/18 16:30 18 98 12/12/18 15:20 37.0 C 61 18 135/81 97 12/12/18 15:00 16 99 12/12/18 14:00 14 97 12/12/18 13:20 36.7 C 74 16 127/75 96 12/12/18 13:00 18 97 12/12/18 12:34 64 99 12/12/18 12:29 77 100 12/12/18 12:26 73 124/69 12/12/18 12:24 69 100 12/12/18 12:19 71 100 12/12/18 12:16 65 20 134/75 12/12/18 12:14 70 100 12/12/18 12:09 69 100 12/12/18 12:06 63 20 139/78 12/12/18 12:04 66 100 12/12/18 12:00 16 98 12/12/18 11:59 74 100 12/12/18 11:56 70 134/75 12/12/18 11:54 66 100 12/12/18 11:49 72 100 12/12/18 11:45 70 136/70 12/12/18 11:44 70 100 12/12/18 11:39 90 100 12/12/18 11:36 73 20 137/69 12/12/18 11:34 71 99 12/12/18 11:29 72 99 12/12/18 11:25 71 20 116/65 12/12/18 11:24 69 99 12/12/18 11:19 67 99 12/12/18 11:16 74 20 111/58 L 12/12/18 11:14 74 99 12/12/18 11:09 71 99 12/12/18 11:05 73 20 110/58 L 12/12/18 11:04 75 98 12/12/18 10:59 75 97 12/12/18 10:55 75 20 113/60 12/12/18 10:54 78 97 12/12/18 10:49 94 H 98 12/12/18 10:47 96 H 94 12/12/18 10:45 84 18 112/58 L 12/12/18 10:44 91 H 97 12/12/18 10:39 79 97 12/12/18 10:36 82 20 113/64 12/12/18 10:34 85 98 12/12/18 10:29 88 97 12/12/18 10:26 91 H 20 110/64 12/12/18 10:24 92 H 97 12/12/18 10:19 84 96 12/12/18 10:15 86 20 118/68 12/12/18 10:14 95 H 93 12/12/18 08:57 84 97 12/12/18 08:52 101 H 97 12/12/18 08:50 36.8 C 22 12/12/18 08:47 86 97 12/12/18 08:42 84 97 12/12/18 08:41 106 H 93 12/12/18 08:37 112 H 126/70 97 12/12/18 08:32 104 H 98 12/12/18 08:27 115 H 97 12/12/18 08:22 106 H 98 12/12/18 08:21 105 H 20 127/62 12/12/18 08:17 93 H 97 12/12/18 08:12 111 H 97 12/12/18 08:07 117 H 96 12/12/18 08:05 84 22 142/67 H 12/12/18 08:02 118 H 92 12/12/18 08:01 82 98 12/12/18 07:56 81 22 142/67 H 98 12/12/18 07:51 92 H 97 12/12/18 07:46 84 98 12/12/18 07:41 89 98 12/12/18 07:36 82 97 12/12/18 07:32 73 94 12/12/18 07:31 76 97 12/12/18 07:26 81 96 12/12/18 07:22 97 H 91 12/12/18 07:21 89 97 12/12/18 07:19 37.2 C 22 12/12/18 07:16 90 98 12/12/18 07:12 87 92 12/12/18 07:11 75 96 12/12/18 07:06 94 H 22 149/70 H 97 12/12/18 07:04 95 H 92 12/12/18 07:01 81 98 12/12/18 06:59 18 12/12/18 06:56 77 98 12/12/18 06:53 84 90 12/12/18 06:51 84 130/72 97 12/12/18 06:46 94 H 98 12/12/18 06:41 81 92 12/12/18 06:40 37.0 C 12/12/18 06:36 72 134/63 97 12/12/18 06:31 75 18 98 12/12/18 06:26 70 98 12/12/18 06:23 68 94 12/12/18 06:21 73 139/63 97 12/12/18 06:16 93 H 100 12/12/18 06:11 86 97 12/12/18 06:06 76 97 12/12/18 06:05 76 164/84 H 12/12/18 06:01 76 97 12/12/18 05:56 69 97 12/12/18 05:52 75 165/82 H 12/12/18 05:51 85 97 12/12/18 05:46 74 98 12/12/18 05:41 73 98 12/12/18 05:36 81 98 12/12/18 05:35 77 151/85 H 12/12/18 05:31 79 18 148/82 H 98 12/12/18 05:29 75 196/95 H 12/12/18 05:26 71 99 12/12/18 05:21 75 97 12/12/18 05:16 80 99 12/12/18 05:11 75 99 12/12/18 05:07 90 168/82 H 12/12/18 05:06 93 H 187/98 H 97 12/12/18 05:01 75 100 12/12/18 04:56 80 99 12/12/18 04:52 76 223/124 H 12/12/18 04:51 76 96 12/12/18 04:46 81 98 12/12/18 04:41 87 99 12/12/18 04:36 85 164/97 H 100 12/12/18 04:31 75 99 12/12/18 04:30 18 12/12/18 04:26 76 98 12/12/18 04:21 80 100 12/12/18 04:20 81 151/89 H 12/12/18 04:16 73 98 12/12/18 04:11 79 100 12/12/18 04:06 85 100 12/12/18 04:05 80 146/85 H 12/12/18 04:01 85 100 12/12/18 03:56 82 99 12/12/18 03:51 99 H 100 12/12/18 03:50 96 H 141/92 H 12/12/18 03:46 78 100 12/12/18 03:41 87 100 12/12/18 03:36 87 138/76 100 12/12/18 03:31 72 98 12/12/18 03:30 18 12/12/18 03:26 77 97 12/12/18 03:21 78 95 12/12/18 03:20 78 122/59 L 94 12/12/18 03:16 79 96 12/12/18 03:11 81 96 12/12/18 03:06 77 95 12/12/18 03:05 78 120/58 L 93 12/12/18 03:01 79 18 96 12/12/18 02:56 76 96 12/12/18 02:51 76 119/61 97 12/12/18 02:45 77 97 12/12/18 02:40 77 97 12/12/18 02:35 79 117/68 100 12/12/18 02:30 79 18 100 12/12/18 02:25 93 H 100 12/12/18 02:20 80 136/81 99 12/12/18 02:15 81 99 12/12/18 02:10 95 H 99 12/12/18 02:06 83 84 L 12/12/18 02:05 91 H 136/76 100 12/12/18 02:00 93 H 18 99 12/12/18 01:59 73 141/80 H 12/12/18 01:57 82 141/77 H 12/12/18 01:55 92 H 133/75 99 12/12/18 01:53 83 135/76 12/12/18 01:51 81 134/75 12/12/18 01:50 89 99 12/12/18 01:48 73 150/79 H 12/12/18 01:47 82 147/89 H 12/12/18 01:45 75 143/76 H 99 12/12/18 01:43 81 143/77 H 12/12/18 01:41 77 145/77 H 12/12/18 01:40 84 98 12/12/18 01:39 75 141/75 H 12/12/18 01:37 74 144/78 H 12/12/18 01:35 86 139/75 98 12/12/18 01:34 36.8 C 18 12/12/18 01:33 77 135/74 12/12/18 01:31 77 148/80 H 12/12/18 01:30 79 99 12/12/18 01:29 75 139/75 12/12/18 01:28 85 135/77 12/12/18 01:25 79 99 12/12/18 01:23 77 141/82 H 12/12/18 01:20 76 98 12/12/18 01:15 80 98 12/12/18 01:10 82 98 12/12/18 01:09 81 136/74 12/12/18 01:05 83 99 12/12/18 01:00 79 98 12/12/18 00:55 73 97 12/12/18 00:53 78 130/69 12/12/18 00:50 79 97 12/12/18 00:45 77 97 12/12/18 00:40 73 97 12/12/18 00:38 81 129/68 12/12/18 00:35 80 98 12/12/18 00:30 77 18 97 12/12/18 00:29 75 149/84 H 12/12/18 00:25 86 98 12/12/18 00:20 79 98 12/12/18 00:19 83 130/74 12/12/18 00:15 93 H 99 12/12/18 00:10 78 95 12/12/18 00:09 75 140/80 12/12/18 00:05 79 95 Pain Intensity Abdomen: Pain Intensity: 5 Notes Notes: Ms. Howard is a 28 year old female s/p earlier today with delivery of a little girl. I was consulted by Dr. Churchill on 12/11/[address] an epidural catheter for labor pain management. Prior to epidural placement, the risks of epidural anesthesia were discussed, questions were answered and consent was obtained. Multiple attempts were made at epidural placement, but placement was complicated by continually encountering oss. The patient was repositioned in between attempts in order to promote spinal flexion. All attempts were made using standard loss of resistance with saline. In between each attempt, the stylet was run through the tuohy to clear the bore. During my final attempt I was able to advance the tuohy just slightly beyond the distance at which I had previously encountered bone. I did not experience loss of resistance and so at this time, I ran the stylet through the tuohy. Immediately after removing the stylet I had return of clear CSF. I placed an intrathecal catheter, removed the tuohy and bolused the patient in order to achieve pain relief. After covering the catheter site with an occlusive dressing, I came around to the patient's front and immediately explained that I had punctured her dura. I explained the difference between spinal catheters and epidural catheters. I explained that I had given some medication already to give her pain relief and that at this time I had threaded a spinal catheter. I then offered to remove the catheter and reattempt epidural placement or I offered to leave the spinal catheter in place and use that for pain management. The patient made the decision to leave the spinal catheter in place for her labor. Early this morning, the catheter was used as the primary anesthetic for the patient's . When I saw the patient this evening, the patient reported a headache that was temporarily relieved by toradol. She thinks the headache is from stress and lack of sleep. The headache is not positional at this time. The patient states that she has return of full sensation and movement in her extremities and she denied any neurological complaints. In addition, the patient shared that she feels that "everything went wrong" with her anesthetic management. I apologized for her being unhappy with her anesthetic. We reviewed the occurrence of accidental dural puncture (about 1%) and that it had not been my intention to puncture her dura, but that dural punctures do occur, especially in patient's with prior history of back problems. I also emphasized that the remainder of her anesthetic had proceeded normally. In particular, the patient wanted full pain control during labor, but did not want to feel numb. I discussed that both epidurals and spinals control pain by numbing the body. We also reviewed that she had also been offered a fentanyl bolus through her catheter in an attempt to increase pain control with less local anesthetic, but that she had refused fentanyl because she was concerned about pruritus. The patient was also upset that she had requested a bolus prior to pushing but that I had not responded. I did share that at the time of her call I had been placing epidurals on 3 other women who had been laboring. I did share that I had come to bolus after placing the epidurals, but that she had started to push and the OB team had felt that additional boluses at that time would interfere with her ability to push. The patient had no other complaints at this time and wished me to leave the room so that she could speak with the bottom saw operator. We are actively working to minimize the patient's risk of postdural puncture headache. She was given a dose of cosyntropin earlier today after delivery. There is some evidence that PDPH risk decreases when intrathecal catheters are left in place for 24 hours post delivery. Currently, the patient denies any pa in or discomfort from the catheter, so we will leave the catheter in place until tomorrow morning. In addition, prior to removal tomorrow morning, she will be bolused with normal saline through the catheter. After catheter removal, the anesthesia team will monitor the patient closely for any evidence of developing post dural puncture headache and evaluated for epidural blood patch as needed. Kalyn Chinchilla MD, PhD Anesthesiology
[2018-12-13] MEDS: KETOROLAC 30 MG/ML VIAL IV PRN (01:12)
[2018-12-13] MEDS ORDERED: PROMETHAZINE HCL 25 MG in SODIUM CHLORIDE 0.9% 50 ML IV PRN (03:35)
[2018-12-13] MEDS ORDERED: DC INTRASPINAL MORPHINE ONE (03:35)
[2018-12-13] MEDS ORDERED: DiphenhydrAMINE HCL 50 MG/ML VIAL IV PRN (03:35)
[2018-12-13] MEDS ORDERED: KETOROLAC 30 MG/ML VIAL IV PRN (03:35)
[2018-12-13] MEDS ORDERED: ONDANSETRON INJ 2 MG/ML 2 ML VIAL IV PRN (03:35)
[2018-12-13] MEDS: OXYCODONE/ACETAMINOPHEN 5mg/325mg TAB PO PRN ×3 (04:02→23:44)
[2018-12-13] MEDS ORDERED: CITRIC ACID/SODIUM CITRATE 15 ML UDC PO SCH (06:00)
[2018-12-13 07:12] LABS: Basophils # (auto) 0.01 K/uL (0-0.2); Basophils % (auto) 0.1 %; Eosinophils # (auto) 0.09 K/uL (0-0.5); Eosinophils % (auto) 0.5 %; Hematocrit (blood only) 27.4 % (37-47); Hemoglobin 9.3 g/dL (12.0-16.0); Immature Granulocytes % (auto) 0.5 %; Lymphocytes # (auto) 1.81 K/uL (1.2-3.4); Lymphocytes % (auto) 9.2 %; Mean Corpuscular Hgb Conc 33.9 g/dL (32-36); Mean Platelet Volume 9.9 fL (7.4-10.4); Monocytes # (auto) 1.77 K/uL (0.11-0.59); Neutrophils # (auto) 15.99 K/uL (1.4-6.5); Neutrophils % (auto) 80.7 %; Platelet Count 237 K/uL (130-400); RDW Coefficient of Variation 14.6 % (11.5-14.5); RDW Standard Deviation 46.3 fL (36.4-46.3); Red Blood Count 3.15 M/uL (4.2-5.4); White Blood Count 19.77 K/uL (4.8-10.8)
[2018-12-13] MEDS: DOCUSATE SODIUM 100 MG CAP PO SCH ×2 (08:35→21:15)
[2018-12-13] MEDS: FERROUS SULFATE 325 MG TAB PO SCH (08:36)
[2018-12-13] MEDS: SIMETHICONE 80 MG CHEW PO SCH ×4 (08:36→21:15)
[2018-12-13] MEDS: PRENATAL VITAMIN 1 TAB PO SCH (08:37)
--- NOTE | 2018-12-13 09:01 | CT Scan Report ---
CT head/brain wo con CLINICAL HISTORY: headache with visual changes COMPARISON STUDY: No previous studies for comparison. TECHNIQUE: Axial CT of the brain is performed from the vertex to the skull base. IV contrast was not administered for this examination. A dose lowering technique was utilized adhering to the principles of ALARA. CT DOSE: 537.48 mGy.cm FINDINGS: No intra or extra-axial mass lesions are visualized. There is no CT evidence of acute cortical infarc tion. There is no evidence of midline shift. There is no acute hemorrhage. No calvarial fractures ar e visualized. There is no evidence of pathologic ventricular dilatation. There is no evidence of acute sinusitis IMPRESSION: Normal noncontrast head CT. Electronically signed by: Ranjit Jones M.D. 12/13/2018 8:59 AM
[2018-12-13 09:06] LABS: Albumin Level 1.8 gm/dl (3.4-5.0); BUN Creatinine Ratio 17.6 (10-20); Calcium 8.2 mg/dl (8.5-10.1); Creatinine Clr Calc Pharmacy 166.9 ml/min; Est GFR (Non-African American) 117.4; Potassium 4.2 mmol/L (3.5-5.1)
[2018-12-13 09:11] LABS: Albumin Globulin Ratio 0.5 (0.9-2); Bilirubin,Total 0.2 mg/dl (0.2-1); Globulin 3.9 gm/dl (2.5-4.0); Total Protein 5.7 gm/dl (6.4-8.2)
--- NOTE | 2018-12-13 09:17 | Obstetrical Progress Note ---
Date of Service December 13, 2018 Assessment & Plan (1) S/P section: POD#1 s/p . For headache, anesthesia will see patient to r/o spinal headache. I have ordered Head CT, and have asked on-call neurologist Dr Ny to see patient. Not likely to be preeclampsia, as blood pressure and Preeclampsia labs are normal. Continue ambulation, PO fluids. Subjective POD#1. Complaint of headache and blurry vision in right eye. She rates this as at least 5-6/10 when lying in bed, worsening with standing. She is very worried this could be a sign that something is seriously wrong. No nausea/vomiting. Ambulating well, ok. Passing gas. Moderate lochia. Physical Exam Vital Signs (Past 24 Hours): Last Vital Signs Temp 36.6 C 12/13/18 03:30 Pulse 92 H 12/13/18 03:30 Resp 20 12/13/18 03:30 BP 118/76 12/13/18 03:30 Pulse Ox 99 12/13/18 03:30 Physical Exam: Gen: AAOx3, NAD. CV: RRR S1S2 L: CTAB Abd: soft, NTTP. Incision CDI Ext: no edema, no calf tenderness. EPCs in place. Neuro: no obvious deficits.
--- NOTE | 2018-12-13 09:40 | Anesthesia Procedure Note ---
Date of Service December 13, 2018 Anesthesia Post Epidural Note Vital Signs Vital Signs: Temp Pulse Resp BP Pulse Ox 36.6 C 92 H 20 118/76 99 12/13/18 03:30 12/13/18 03:30 12/13/18 03:30 12/13/18 03:30 12/13/18 03:30 Pain Intensity Abdomen: Pain Intensity: 5 Notes Mental Status: alert / awake / arousable Patient Amnestic to Procedure: No Nausea / Vomiting: adequately controlled Pain: adequately controlled Airway Patency, RR, SpO2: stable & adequate BP & HR: stable & adequate Hydration State: stable & adequate Neuraxial Anesthesia: was administered (Intrathecal catheter) and sensory block resolved Anesthetic Complications: see Notes below Epidural: Removed without complications and With tip intact Notes: Followed up with pt with intrathecal catheter. Pt had c/o BAEZ intermittently since yesterday. Pt seen and interviewed regarding her BAEZ today. Pt states that BAEZ is different than the one she had yesterday. She states that her BAEZ is worse and rating it as 10/10 while standing up, and 9/10 while sitting. BAEZ improved with lying down and but not completely resolved. BAEZ is located more in the occipital area now compared to the frontal BAEZ she had yesterday. Explained to patient that she has had an accidental dural puncture during her epidural placement and that the BAEZ could be PDPH. Discussed options of treatment with patient including conservative management vs. doing an epidural blood patch. Discussed with pt r/b of each treatment options. Discussed with patient regarding risk of doing epidural blood patch, including the possible risk of accidentally puncturing her dura again which can potentially worsen her BAEZ. Pt states that for now she wants to try conservative management. Pt so far had been treated with caffeine as well as 1mg of IV cosyntropin infusion yesterday. She has had a head CT this morning which was negative for acute intracranial process. Dr. Ny from Neurology is also consulted to see her later today. Will await Dr. Ny's recommendation. Her intrathecal catheter was pulled under sterile condition. Prior to pulling the catheter, the end cap was cleaned with sterile alcohol swab. Sterile, preservative free 10ml of normal saline was injected through the catheter. Saline injection via the intrathecal catheter did not relieve her BAEZ symptoms. Catheter was removed without complications. Catheter site has two visible puncture baires and looks clean and dry without signs of edema or erythema. There was a small amount of visible, clear fluid at the insertion site after the catheter was pulled. Discussed with Dr. Gayle regarding patient's wishes of conservative management for now including trying fioricet and Dr. Gayle agreed with plan. Will continue to follow up on patient regarding her BAEZ.
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
--- NOTE | 2018-12-13 11:38 | Communication Note ---
Date of Service: December 13, 2018 Stopped by patient room to check on her well being and offer congratulations again. Care between end of my shift and current time reviewed with Dr. Gayle this morning and with nurses as well. Patient has had interim head CT and neurology evaluation as well as removal of spinal catheter. She is currently in room with and baby, sitting upright on the bed dressed in street clothes and smiling; she had just showered and was applying lotion when I arrived. She shared her thoughts and frustrations regarding the dural puncture, the length of her labor, and wishing that had occurred long before she reached the pushing stage. She also shared that the more time which passes since the , the more she feels happy that baby is here and grateful things ended safely. She showed me pictures on her phone of their 14yo stepdaughter ('s child with another woman) including comparative baby photos of her and the new baby. She chatted with me about the 's two weeks off of work, plans for caring for the baby together at home, and his status in [place] [employer] and the possibility of his being called to the [facility] border to build "the wall" if it is funded. She voices satisfaction with the plan for fioricet as needed to control her headache at this time, and volunteers that she declined a blood patch for now. The [employer] meal cart arrived during my approximately ten minute visit so I wished them an enjoyable lunch and stepped out.
[2018-12-13] MEDS: IBUPROFEN 600 MG TAB PO PRN ×2 (12:48→21:16)
[2018-12-13] MEDS: BUTALBITAL/ACETAMIN/CAFFEINE TAB PO PRN ×2 (12:55→21:16)
[2018-12-13] MEDS ORDERED: BISACODYL 5 MG TABEC PO SCH (20:00)
[2018-12-14] MEDS: IBUPROFEN 600 MG TAB PO PRN ×2 (06:02→15:32)
--- NOTE | 2018-12-14 07:15 | Obstetrical Progress Note ---
Date of Service December 14, 2018 Assessment & Plan (1) S/P section: POD#2 doing well. Continue routine /postop care. Anticipate DC home tomorrow. Subjective POD#2 doing well. Pumping in room during visit. States headache has resolved. Ambulating well. Eating/drinking well. Moderate lochia. Passing gas, no bowel movement yet. Physical Exam Vital Signs (Past 24 Hours): Last Vital Signs Temp 36.7 C 12/13/18 23:30 Pulse 94 H 12/13/18 23:30 Resp 18 12/13/18 23:30 BP 128/77 12/13/18 23:30 Pulse Ox 98 12/13/18 20:00 Physical Exam: Gen: AAOx3 NAD CV: RRR L: CTA Abd: soft, fundus firm, incision CDI Ext: no edema
--- NOTE | 2018-12-14 07:34 | Anesthesiology Progress Note ---
Date of Service December 14, 2018 Anesthesia Post Procedure Vital Signs Vital Signs: Temp Pulse Resp BP Pulse Ox 12/13/18 23:30 36.7 C 94 H 18 128/77 12/13/18 20:00 37.1 C 93 H 18 139/79 98 12/13/18 16:00 36.7 C 12/13/18 15:15 92 H 20 121/73 98 12/13/18 12:45 37.1 C 109 H 22 119/72 12/13/18 08:10 36.6 C 100 H 20 117/73 Pain Intensity Abdomen: Pain Intensity: 6 Notes Notes: Attempted to round on patient this morning, but Do NOT Disturb sign is posted on the door. I did see the patient up ambulating with her baby late last night and she appeared comfortable at that time. I spoke to the patients nurse who said the patient did not have a headache this morning and that she has been up ambulating to the bathroom. Informed nursing staff that patient is 24 hours from catheter pull and to watch her closely for the next 24 hours for any new headaches. The nursing team verbalized understanding and will call anesthesia for any new headaches. I provided sign out on Ms. Howard to Dr. Fernandez who will be the incoming anesthesiologist for OB.
[2018-12-14] MEDS: PRENATAL VITAMIN 1 TAB PO SCH (08:32)
[2018-12-14] MEDS: SIMETHICONE 80 MG CHEW PO SCH ×3 (08:32→21:39)
[2018-12-14] MEDS: FERROUS SULFATE 325 MG TAB PO SCH (08:32)
[2018-12-14] MEDS: DOCUSATE SODIUM 100 MG CAP PO SCH ×2 (08:32→21:39)
[2018-12-14 09:12] LABS: Hematocrit (blood only) 25.3 % (37-47); Hemoglobin 8.6 g/dL (12.0-16.0)
[2018-12-14] MEDS ORDERED: BISACODYL 10 MG SUPP PR PRN (10:10)
[2018-12-14] MEDS: BUTALBITAL/ACETAMIN/CAFFEINE TAB PO PRN (10:52)
[2018-12-14] MEDS ORDERED: MAGNESIUM HYDROXIDE SUSP 30 ML UDC ONE (13:22)
[2018-12-14] MEDS ORDERED: POLYETHYLENE (MIRALAX) 17 GM PACK ONE (13:26)
[2018-12-14] MEDS ORDERED: POLYETHYLENE (MIRALAX) 17 GM PACK PO SCH (13:30)
[2018-12-14] MEDS: MAGNESIUM HYDROXIDE SUSP 30 ML UDC PO SCH (13:35)
[2018-12-14 18:31] LABS: Hematocrit (blood only) 24.8 % (37-47); Hemoglobin 8.4 g/dL (12.0-16.0)
--- NOTE | 2018-12-14 21:08 | CT Scan Report ---
ABDOMEN AND PELVIS CT WITHOUT CONTRAST CT DOSE: 1448.10 mGy.cm HISTORY: Acute generalized abdominal pain. . Abd pain. TECHNIQUE: Multiaxial CT images of the abdomen and pelvis were performed without contrast. A dose lo wering technique was utilized adhering to the principles of ALARA. COMPARISON STUDY: None. FINDINGS: Likely benign 4 mm subpleural nodule of the basal left lower lobe. Mild subsegmental bibasilar atele ctasis. Trace right pleural effusion. No pneumatosis or pneumoperitoneum. Imaged inferior cardiac jorge mbers are unremarkable. Decreased attenuation of the cardiac blood pool suggestive of underlying anem ia. Contracted gallbladder. Liver, pancreas and adrenal glands appear unremarkable. The spleen is mildly enlarged, 13.8 cm. Kidneys and ureters are within normal limits. Urinary bladder is unremarkable. Enl arged heterogeneous appearance of the uterus, expected in a patient. Heterogeneous debris and air noted within the endometrial canal with hyperattenuating material seen within the lower uteri ne segment and cervix suggestive of blood products. Additionally, there is hemorrhagic material noted anterior to the uterus about the area of the scar measuring up to 3.3 x 8.7 x 3.3 cm in AP , transverse and cranial caudal dimensions. Trace amount of free pelvic fluid. No adnexal mass lesion s. Scattered foci of free air noted but the space of Retzius within the anterior abdominal wall invol ving the rectus sheath and subcutaneous tissues. Subcutaneous induration of the lower pelvic wall. No nspecific mildly prominent and enlarged bilateral inguinal lymph nodes measure up to 1.0 cm in short axis. Aorta and IVC are unremarkable. There is no small bowel obstruction. Moderate volume of formed stool is noted throughout the colon. The appendix is not definitively seen. No secondary signs of acute shira endicitis. Imaged breast parenchyma and soft tissues are otherwise unremarkable. Bones appear to be i ntact. Mild intervertebral disc space narrowing with mild spondylitic spurring at L5-S1. IMPRESSION: 1. Enlarged heterogeneous appearance of the uterus compatible with state. Air and debris n oted within the endometrial canal with hyperdense material within the lower uterine segment and endoc ervical canal compatible with blood products. Additionally, there is an ill-defined hematoma noted an terior to the uterus the level of the scar measuring up to 8.7 cm transversely. 2. Infiltration and deep tissue air about the lower anterior abdominal and pelvic wall, likely expect ed postoperative findings. Additional deep tissue air noted about the space of Retzius. 3. No bowel obstruction or focal bowel wall thickening. 4. Mild splenomegaly. 5. Trace right pleural effusion with bibasilar atelectasis. 6. Suggested anemia. Electronically signed by: Patrick Valenzuela M.D. 12/14/2018 9:06 PM
[2018-12-14] MEDS: OXYCODONE/ACETAMINOPHEN 5mg/325mg TAB PO PRN (23:58)
[2018-12-15] MEDS: IBUPROFEN 600 MG TAB PO PRN (02:39)
[2018-12-15 06:36] LABS: Hematocrit (blood only) 25.9 % (37-47); Hemoglobin 8.8 g/dL (12.0-16.0)
[2018-12-15 06:53] LABS: Calcium 8.4 mg/dl (8.5-10.1); Creatinine Clr Calc Pharmacy 186.1 ml/min; Est GFR (Non-African American) 121.7; Potassium 3.7 mmol/L (3.5-5.1)
--- NOTE | 2018-12-15 07:23 | Obstetrical Progress Note ---
Date of Service December 15, 2018 Assessment & Plan (1) S/P section: Patient doing well. Reporting mild/moderate headache from epidural - continue fiorcet Patient requesting follow-up blood CBC which was ordered for Friday Patient otherwise doing well and stable for discharge today Subjective Ambulation: ambulating normally Voiding: no voiding problems Passing Gas:: Yes Diet Tolerance:: regular diet Lochia:: Moderate Physical Exam Vital Signs (Past 24 Hours) Last Vital Signs Temp 36.8 C 12/14/18 15:30 Pulse 91 H 12/14/18 15:30 Resp 18 12/14/18 15:30 BP 124/86 12/14/18 16:45 Pulse Ox 97 12/14/18 15:30 Gastrointestinal (Abdomen) Inspection/Auscultation: + abdominal surgical incision (C/D/I) Genitourinary Speculum/Bimanual Exam: uterus not boggy OB Exam Abdomen: + fundal height Fundus: + firm
--- NOTE | 2018-12-15 08:31 | Anesthesiology Progress Note ---
Date of Service December 15, 2018 Anesthesia Post Procedure Vital Signs Vital Signs: Temp Pulse Resp BP Pulse Ox 12/14/18 16:45 124/86 12/14/18 15:30 36.8 C 91 H 18 141/91 H 97 Pain Intensity Abdomen: Pain Intensity: 8 Notes Notes: Visited with the patient today. At the time of the visit she was sitting up in bed and nursing without apparent distress. She denies any numbness, tingling or weakness in any of her extremities. She has mild back pain that she believes is from the hospital bed. She continues to self ambulate without limitations. She states she still has a headache that is worse with sitting and standing, but that it improves with fioricet and lying down. All recent nursing pain assessments demonstrates significant abdominal pain, but no headache pain rating. The patient continues to have a positional headache, but it is not currently limiting her ability to perform self care or to care for her baby. We recommend to continue conservative management including fluids, caffeine, and fioricet as needed. The patient was told to report to the ED here or in [place] if her headache becomes worse or starts to limit her ADLs. She was also encouraged to call [facility] and request to speak with an anesthesiologist if she has any questions or concerns. She gave me permission to call and check on her at home in a few days.
[2018-12-15] MEDS: MAGNESIUM HYDROXIDE SUSP 30 ML UDC PO SCH (08:52)
[2018-12-15] MEDS: PRENATAL VITAMIN 1 TAB PO SCH (08:52)
[2018-12-15] MEDS: DOCUSATE SODIUM 100 MG CAP PO SCH (08:52)
[2018-12-15] MEDS: OXYCODONE/ACETAMINOPHEN 5mg/325mg TAB PO PRN (08:56)
[2018-12-15] MEDS: SIMETHICONE 80 MG CHEW PO SCH (09:21)
--- NOTE | 2018-12-15 09:47 | Obstetrical Progress Note ---
Date of Service December 15, 2018 Assessment & Plan (1) S/P section: Discussed BP value with patient. At this time her only symptom or sign suggestive of preeclampsia would be the headache which is more likely due to her spinal puncture and is not worsening. She states she may have high BP due to stress because she is eager to leave. I reviewed that her Creatinine is normal which also suggests not preeclamptic, though additional labwork including platelets could be added to further evaluate for preeclampsia. We discussed the blood staining on her bandage which is worrying her as she feels she did not bleed this much after prior needlesticks, and she shares that she picked at her nose this morning and had oozing at the site afterwards. She requests that we check coag panel along with her platelets. Subjective Patient had BP checked and noted to be 144/89 on the arm with the higher value (130s systolic on other arm at same check). Patient told nurse that this worries her. I came to room to evaluate patient immediately after being notified of BP. She is seated upright in bed, baby in bassinet, FOB in room. I asked her how she is feeling, and she still has mild headache. She specifically denies SOB, CP, RUQ pain, N/V, heartburn, change in edema of ankles or feet, and any vision disturbance. She does c/o feeling that her abdomen is swollen and states that she has decreased her dietary intake due to fear of ileus and has been walking as much as possible. Physical Exam Vital Signs (Past 24 Hours) Last Vital Signs Temp 36.7 C 12/15/18 08:00 Pulse 83 12/15/18 08:00 Resp 18 12/15/18 08:00 BP 132/87 12/15/18 08:00 Pulse Ox 98 12/15/18 08:00 Gen: Sitting upright in bed, NAD, dressed VS: Reviewed in chart and with GERONIMO Esqueda Skin: Noted to have bandage on RUE from recent blood draw with about 25% blood staining visible through coban Abdomen: Post gravid. Soft. Appropriately tender. Incision C/D/I. Ext: No pedal edema. DTR 1+ at patella. SCD's not on patient. Results & Data Laboratory Results Laboratory Results - last 24 hr 12/14/18 12/15/18 12/15/18 18:16 06:18 06:18 Hgb 8.4 L 8.8 L Hct 24.8 L 25.9 L Sodium 142 Potassium 3.7 Chloride 108 H Carbon Dioxide 27 Anion Gap 7.0 BUN 9 Creatinine 0.61 Est Cr Clr Drug Dosing 186.1 Est GFR ( Amer) 141.0 Est GFR (Non-Af Amer) 121.7 BUN/Creatinine Ratio 15.0 Glucose 99 Calcium 8.4 L Diagnostic Findings Laboratory Results WBC 19.77 K/uL (4.8-10.8) H 12/13/18 06:55 RBC 3.15 M/uL (4.2-5.4) L 12/13/18 06:55 Hgb 8.8 g/dL (12.0-16.0) L 12/15/18 06:18 Hct 25.9 % (37-47) L 12/15/18 06:18 MCV 87.0 fL (80-100) 12/13/18 06:55 MCH 29.5 pg (25-34) 12/13/18 06:55 MCHC 33.9 g/dL (32-36) 12/13/18 06:55 RDW Std Deviation 46.3 fL (36.4-46.3) 12/13/18 06:55 RDW Coeff of Maggy 14.6 % (11.5-14.5) H 12/13/18 06:55 Plt Count 237 K/uL (130-400) 12/13/18 06:55 MPV 9.9 fL (7.4-10.4) 12/13/18 06:55 Immature Gran % (Auto) 0.5 % 12/13/18 06:55 Neut % (Auto) 80.7 % 12/13/18 06:55 Lymph % (Auto) 9.2 % 12/13/18 06:55 [place] % (Auto) 9.0 % 12/13/18 06:55 Eos % (Auto) 0.5 % 12/13/18 06:55 Baso % (Auto) 0.1 % 12/13/18 06:55 Immature Gran # (Auto) 0.10 K/uL (0.00-0.02) H 12/13/18 06:55 Neut # (Auto) 15.99 K/uL (1.4-6.5) H 12/13/18 06:55 Lymph # (Auto) 1.81 K/uL (1.2-3.4) 12/13/18 06:55 [place] # (Auto) 1.77 K/uL (0.11-0.59) H 12/13/18 06:55 Eos # (Auto) 0.09 K/uL (0-0.5) 12/13/18 06:55 Baso # (Auto) 0.01 K/uL (0-0.2) 12/13/18 06:55 Cord ABG pH 7.10 (7.1-7.38) 12/12/18 09:21 Cord ABG pCO2 66 mmHg (39.1-73.5) 12/12/18 09:21 Cord ABG pO2 17.0 % (4.1-31.7) 12/12/18 09:21 Cord ABG HCO3 20 mmol/L (19.7-28.5) 12/12/18 09: Cord ABG Base Excess -11.4 mEq/L (-9-1.8) L 12/12/18 09:21 Cord ABG O2 Sat < 60.0 % (<60) 12/12/18 09:21 Cord VBG pH 7.22 (7.20-7.44) 12/12/18 09:21 Cord VBG pCO2 48 mmHg (30.4-57.2) 12/12/18 09:21 Cord VBG pO2 24 mmHg (14.1-43.3) 12/12/18 09:21 Cord VBG HCO3 20 mmol/L (18.4-26.8) 12/12/18 09:21 Cord VBG Base Excess -8.5 mEq/L (-7.7-1.9) L 12/12/18 09:21 Cord VBG O2 Sat < 60.0 % (<68) 12/12/18 09:21 Barometric Pressure 734.2 mm/Hg 12/12/18 09:21 Blood Gas Comments ARROYO 12/12/18 09:21 Sodium 142 mmol/L (136-145) 12/15/18 06:18 Potassium 3.7 mmol/L (3.5-5.1) 12/15/18 06:18 Chloride 108 mmol/L (98-107) H 12/15/18 06:18 Carbon Dioxide 27 mmol/L (21-32) 12/15/18 06:18 Anion Gap 7.0 (3-11) 12/15/18 06:18 BUN 9 mg/dl (7-18) 12/15/18 06:18 Creatinine 0.61 mg/dl (0.6-1.2) 12/15/18 06:18 Est Cr Clr Drug Dosing 186.1 ml/min 12/15/18 06:18 Est GFR ( Amer) 141.0 12/15/18 06:18 Est GFR (Non-Af Amer) 121.7 12/15/18 06:18 BUN/Creatinine Ratio 15.0 (10-20) 12/15/18 06:18 Glucose 99 mg/dl (70-99) 12/15/18 06:18 Calcium 8.4 mg/dl (8.5-10.1) L 12/15/18 06:18 Total Bilirubin 0.2 mg/dl (0.2-1) 12/13/18 08:35 AST 24 U/L (15-37) 12/13/18 08:35 ALT 14 U/L (12-78) 12/13/18 08:35 Alkaline Phosphatase 95 U/L (45-117) 12/13/18 08:35 Total Protein 5.7 gm/dl (6.4-8.2) L 12/13/18 08:35 Albumin 1.8 gm/dl (3.4-5.0) L 12/13/18 08:35 Globulin 3.9 gm/dl (2.5-4.0) 12/13/18 08:35 Albumin/Globulin Ratio 0.5 (0.9-2) L 12/13/18 08:35 Medications Administered Home Medications Medication Instructions Recorded Confirmed Last Taken [id number] 1 tab PO DAILY 10/04/18 12/11/18 12/11/18 06:00 [] diphenhydramine HCl [Unisom 50 mg PO HS PRN 10/04/18 12/11/18 12/10/18 21:00 Sleepgels] ferrous sulfate [iron] 325 mg PO 3XWK 10/04/18 12/11/18 12/11/18 [id number] 1 tab PO Q8 PRN 10 Days #30 tab 12/15/18 Unknown oxycodone-acetaminophen [Percocet] 1 - 2 tab PO Q4H PRN 5 Days #20 tab 12/15/18 Unknown Active Medications Generic Name Dose Route Start Last Admin Trade Name Freq PRN Reason Stop Dose Admin Acetaminophen/Butalbital/Caffeine 1 tab 12/13/18 10:21 12/14/18 10:52 Fioricet PO 01/12/19 10:20 1 tab Q8 PRN Administration Headache Bisacodyl 10 mg 12/14/18 10:10 12/14/18 18:39 Dulcolax OR 01/13/19 10:09 10 mg PRN PRN Administration Constipation Docusate Sodium 100 mg 12/12/18 21:00 12/15/18 08:52 Colace PO 01/11/19 20:59 100 mg BID HAYDEN Administration Ferrous Sulfate 325 mg 12/13/18 09:00 12/14/18 08:32 Feosol PO 01/12/19 08:59 325 mg QAM HAYDEN Administration Lactated Ringer's 1,000 mls @ 125 mls/hr 12/12/18 10:53 12/12/18 19:15 Lr IV 01/11/19 10:52 125 mls/hr .Q8H HAYDEN Administration Ibuprofen 600 mg 12/13/18 10:23 12/15/18 02:39 Motrin PO 01/12/19 10:29 600 mg Q8H PRN Administration pain Magnesium Hydroxide 30 ml 12/14/18 13:30 12/15/18 08:52 Milk Of Magnesia PO 01/13/19 13:29 30 ml Q12 HAYDEN Administration Oxycodone/Acetaminophen 1 - 2 tab 12/13/18 03:35 12/15/18 08:56 Percocet 5mg/325mg PO 12/27/18 03:34 1 tab Q4H PRN Administration Pain Polyethylene Glycol 17 gm 12/14/18 13:30 12/15/18 08:52 Miralax Powder Packet PO 01/13/19 13:29 17 gm DAILY HAYDEN Administration Prenat Multivit/[place]/Iron/Folic Ac 1 tab 12/13/18 09:00 12/15/18 08:52 Vitamin PO 01/12/19 08:59 1 tab QAM HAYDEN Administration Sennosides 17.2 mg 12/12/18 10:53 12/14/18 21:58 Senokot PO 01/11/19 10:52 17.2 mg HS PRN Administration Constipation Simethicone 80 mg 12/12/18 13:00 12/15/18 09:21 Mylicon PO 01/11/19 12:59 80 mg QID HAYDEN Administration
[2018-12-15] MEDS: FERROUS SULFATE 325 MG TAB PO SCH (10:38)
[2018-12-15 10:39] LABS: Hematocrit (blood only) 25.3 % (37-47); Hemoglobin 8.6 g/dL (12.0-16.0); Mean Corpuscular Volume 87.5 fL (80-100); Mean Platelet Volume 9.6 fL (7.4-10.4); Platelet Count 294 K/uL (130-400); RDW Coefficient of Variation 14.1 % (11.5-14.5); RDW Standard Deviation 45.1 fL (36.4-46.3); Red Blood Count 2.89 M/uL (4.2-5.4); White Blood Count 10.46 K/uL (4.8-10.8)
[2018-12-15 10:50] LABS: INR 0.9 (0.9-1.1); Partial Thromboplastin Time 26.1 Seconds (21.0-31.0); Prothrombin Time 9.5 Seconds (9.0-12.0)
--- NOTE | 2018-12-15 11:28 | Communication Note ---
Date of Service: December 15, 2018 Labs reviewed and reassuring w/r/t preeclampsia. Hgb stable. Coagulation status normal.
--- NOTE | 2018-12-18 08:52 | Discharge Summary ---
Date of Service December 18, 2018 Admission HPI Per Admitting Provider Patient was admitted for planned IOL due to postdates . She labored with induction measures including baez bulb, pitocin, and AROM. The patient underwent placement of epidural which was complicated by dural puncture and placement of intrathecal catheter for ongoing pain relief. She reached complete dilation and pushed effectively for 2.25 hours, however was unable to achieve vaginal delivery. Significant caput had formed but skull remained displaceable upward. At that point after counseling on options, the patient elected to proceed to section. Her section was complicated by DOP po sition, arms tending to protrude through hysterotomy, and resultant difficult extraction which ultimately required a T-incision and breech extraction of the . Apgars of 5/9 were assigned. Her postoperative course was complicated by intermittent elevated blood pressures for which PIH workup was repeatedly negative. She also underwent CT of the head to evaluate ongoing headache in the setting of dural puncture, though she declined blood patch. She further had a CT scan of the abdomen due to patient concerns that her hemoglobin drop reflected intra-abdominal blood loss; the scan showed expected postoperative changes and the Hgb stabilized. She was discharged in good condition on POD3. Discharge Data Consultations 12/11/18 07:42 Consult Anesthesiology Stat 12/13/18 08:29 Consult Neurology Routine Procedures Performed Operation Date: 12/12/18 09:00 Actual Procedures p Section in LD(Bilateral) - Inés Churchill MD
== END 2018-12-15 13:21 | disposition home or self-care (01) | DRG 788 ==
LOC: 4S1 07:29 → 4S2 12-12 12:40
DX: Z37.0 Single live birth; O62.0 Primary inadequate contractions; O74.5 Spinal and epidural anesthesia-induced headache during labor and delivery; G97.1 Other reaction to spinal and lumbar puncture; Z3A.41 41 weeks gestation of pregnancy; O48.1 Prolonged pregnancy; O75.81 Maternal exhaustion complicating labor and delivery

== ENCOUNTER 2018-12-16 17:37 | Observation (INO) ==
[2018-12-16] MEDS ORDERED: SODIUM CHLORIDE 0.9% 1000ML 1,000 ML IV ONE ×2 (18:26→19:41)
[2018-12-16] MEDS ORDERED: METOCLOPRAMIDE HCL INJ 5 MG/ML 2 ML VIAL IV STA (18:26)
--- NOTE | 2018-12-16 18:52 | XRay Report ---
XR chest 1V portable CLINICAL HISTORY: Sepsis dyspnea COMPARISON STUDY: No previous studies for comparison. FINDINGS: The bones soft tissues and hemidiaphragms are normal. The cardiomediastinal silhouette is n ormal. The lungs are clear. The pulmonary vasculature is normal. IMPRESSION: Negative chest. The above report was generated using voice recognition software. It may contain grammatical, syntax or spelling errors. Electronically signed by: Julián Bal M.D. 12/16/2018 6:51 PM
[2018-12-16 19:20] LABS: Basophils # (auto) 0.02 K/uL (0-0.2); Basophils % (auto) 0.1 %; Eosinophils % (auto) 0.7 %; Hematocrit (blood only) 31.2 % (37-47); Hemoglobin 10.8 g/dL (12.0-16.0); Immature Granulocytes # (auto) 0.18 K/uL (0.00-0.02); Immature Granulocytes % (auto) 1.3 %; Lymphocytes # (auto) 1.51 K/uL (1.2-3.4); Lymphocytes % (auto) 10.8 %; Mean Corpuscular Hgb Conc 34.6 g/dL (32-36); Mean Corpuscular Volume 87.4 fL (80-100); Mean Platelet Volume 9.4 fL (7.4-10.4); Monocytes # (auto) 0.71 K/uL (0.11-0.59); Monocytes % (auto) 5.1 %; Platelet Count 380 K/uL (130-400); RDW Coefficient of Variation 13.9 % (11.5-14.5); RDW Standard Deviation 44.7 fL (36.4-46.3); Red Blood Count 3.57 M/uL (4.2-5.4); White Blood Count 14.02 K/uL (4.8-10.8)
[2018-12-16 19:32] LABS: Partial Thromboplastin Time 26.5 Seconds (21.0-31.0); Prothrombin Time 9.8 Seconds (9.0-12.0)
[2018-12-16 19:38] LABS: Albumin Level 2.5 gm/dl (3.4-5.0); BUN Creatinine Ratio 11.8 (10-20); Calcium 8.8 mg/dl (8.5-10.1); Creatinine Clr Calc Pharmacy 149.2 ml/min; Est GFR (Non-African American) 105.3; Potassium 3.9 mmol/L (3.5-5.1)
[2018-12-16 19:41] LABS: Albumin Globulin Ratio 0.5 (0.9-2); Bilirubin,Total 0.3 mg/dl (0.2-1); Globulin 5.2 gm/dl (2.5-4.0); Total Protein 7.7 gm/dl (6.4-8.2)
[2018-12-16] MEDS ORDERED: GENTAMICIN CONSULT ACTIVE PRN (19:41)
[2018-12-16] MEDS ORDERED: CLINDAMYCIN 600 MG/54 ML BAG IV ONE (19:41)
[2018-12-16] MEDS ORDERED: GENTAMICIN SULFATE 440 MG in DEXTROSE 5% 100 ML IV SCH (19:45)
[2018-12-16 19:48] LABS: Appearance Urine Clear (Clear); Bacteria Urine Automated Negative (Negative); Bilirubin Urine Negative (Negative); Blood Urine 3+ (Negative); Cast Urine Automated 0 /lpf (0-5); Color Urine Yellow; Epithelial Cell Urine Auto 20-30 /lpf (0-5); Glucose Urine UA Negative (Negative); Ketones Urine Negative (Negative); Leukocyte Esterase Urine 2+ (Negative); Nitrite Urine Negative (Negative); Protein Urine Negative (Negative); RBC Urine Automated >30 /hpf (0-4); Specific Gravity Urine 1.011 (1.000-1.030); Urobilinogen Urine Negative (Negative); WBC Urine Automated >30 /hpf (0-5); pH Urine 8.5 (4.5-7.5)
[2018-12-16] MEDS ORDERED: GENTAMICIN SULFATE 440 MG in DEXTROSE 5% 100 ML IV ONE (20:15)
[2018-12-16 20:30] LABS: Influenza A virus by PCR Neg for Influ A (Neg); Influenza B virus by PCR Neg for Influ B (Neg)
[2018-12-16] MEDS ORDERED: IBUPROFEN 200 MG TAB PO STA (20:52)
--- NOTE | 2018-12-16 22:09 | History & Physical Report ---
Date of Service December 16, 2018 Assessment & Plan (1) endometritis: The patient's clinical presentation is consistent with endometritis. She has an elevated white count with shaking chills. She is 4 days out from her section that was done after a 2-1/2-hour second stage followed by a section. The patient was started on gentamicin and clindamycin in the emergency room and I believe that is appropriate coverage for the endometritis. We will continue the patient on the IV antibiotics until afebrile for 24 hours. If the patient does not defervesce within the first 12 hours, ampicillin will be added to the regime. The patient has been advised that she can continue to breast-feed and that these antibiotics are compatible with breast-feeding. All questions answered of the patient. History of Present Illness Chief Complaint: Fever and chills Primary Care Provider: NO PCP The patient is a 28-year-old 1 para 1 who presented to the emergency room for evaluation of fever and chills. The patient is status post a primary section after a failure to descend with a prolonged second stage. The patient states that at home she began spiking fevers with shaking chills. She has some generalized breast tenderness but denies any erythema. She does not complaining of any lower abdominal cramping. Patient is having trouble with constipation. The patient took Tylenol at home which brought her temperature down temporarily but returned shortly thereafter. The patient presented to the emergency room for evaluation was noted to have a temp of 39.4 with an elevated white count. Allergies Allergy/AdvReac Type Severity Reaction Status Date / Time No Known Allergies Allergy Verified 12/16/18 18:01 Home Medications Home Medications Medication Instructions Recorded Confirmed Type 1 tab PO DAILY 10/04/18 12/16/18 History diphenhydramine HCl [Unisom 50 mg PO HS PRN 10/04/18 12/16/18 History Sleepgels] ferrous sulfate [iron] 325 mg PO 3XWK 10/04/18 12/16/18 History [id number] 1 tab PO Q8 PRN 10 Days #30 tab 12/15/18 12/16/18 Rx oxycodone-acetaminophen [Percocet] 1 - 2 tab PO Q4H PRN 5 Days #20 tab 12/15/18 12/16/18 Rx polyethylene glycol 3350 [Miralax] 17 g PO DAILY PRN 12/16/18 12/16/18 History Patient History Medical History Back pain History of injury to L3/L4 and S1 after injury at work. 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 Feels Safe at Home: Yes Smoking Status: Never smoker Hx Substance Use: No Physical Exam Vital Signs (Past 24 Hours): Last Vital Signs Temp 39.4 C H 12/16/18 20:30 Pulse 104 H 12/16/18 21:00 Resp 24 12/16/18 21:00 BP 150/94 H 12/16/18 21:00 Pulse Ox 99 12/16/18 21:00 Constitutional: WD/WN, vitals as above Respiratory: Auscultation: lungs clear to auscultation bilaterally Cardiovascular: RRR, no murmur, no edema Extremities: no calf tenderness Gastrointestinal (Abdomen): Well-healed Pfannenstiel type incision with minimal erythema some tenderness but no rebound or guarding Genitourinary: Pelvic exam deferred
[2018-12-16] MEDS ORDERED: ONDANSETRON INJ 2 MG/ML 2 ML VIAL IV PRN (23:33)
[2018-12-16] MEDS ORDERED: SENNA 8.6 MG TAB PO SCH (23:33)
[2018-12-16] MEDS ORDERED: OXYCODONE/ACETAMINOPHEN 5mg/325mg TAB PO PRN (23:33)
[2018-12-16] MEDS: LACTATED RINGER'S 1,000 ML IV SCH (23:53)
[2018-12-17] MEDS: MAGNESIUM HYDROXIDE SUSP 30 ML UDC PO SCH ×2 (00:42→21:26)
--- NOTE | 2018-12-17 01:57 | Emergency Department Note ---
Entered by Carson Chang acting as a scribe for Meng Pitt MD History of Present Illness General Chief complaint: Fever Stated complaint: FEVER - S/P 12/12/18 Time Seen by Provider: 12/16/18 18:01 Source: patient History of Present Illness Provider complaint: Fever Onset (ago): hour(s) 3 Location: head Pain Consistency: + constant Maximum Pain Intensity: 6 Quality: + other (104F) Relieved By: + none Exacerbated By: + other (Sitting up ) Associated symptoms: + diaphoresis, + fever/chills, + headaches and + other (Sore throat, ear pain, no leg swelling); no nausea/vomiting The patient is a 28 year old female w/ PMHx degenerative arthritis, recent born via at 40 weeks 6 days, and a prolonged who presents to the ED w/ CC of a constant fever tht started about 3 hours ago, at 1500. The patient just had a complicated 4 days ago and has had abdominal pain from the procedure. Today the fever started at around 102.1F so she took Tylenol and it went up to 102.4F. She later became diaphoretic after pumping, so she thought she broke it but it had gone up to 104F. The last time she took her temperature it was 100.8F. She also has a headache and residual ear pain from it. The headache is worse with sitting up and better while lying flat. The patient denies any nausea, vomiting, or leg swelling but she does have a slightly sore throat. She currently takes one percocet a day for her pain from the procedure. She states her incision site is healing well. She denies any alcohol or tobacco use. Home Medications Home Medications Medication Instructions Recorded Confirmed Type 1 tab PO DAILY 10/04/18 12/16/18 History diphenhydramine HCl [Unisom 50 mg PO HS PRN 10/04/18 12/16/18 History Sleepgels] ferrous sulfate [iron] 325 mg PO 3XWK 10/04/18 12/16/18 History ppnglcvmoq-elvjnltqoqudv-guxe 1 tab PO Q8 PRN 10 Days #30 tab 12/15/18 12/16/18 Rx oxycodone-acetaminophen [Percocet] 1 - 2 tab PO Q4H PRN 5 Days #20 tab 12/15/18 12/16/18 Rx polyethylene glycol 3350 [Miralax] 17 g PO DAILY PRN 12/16/18 12/16/18 History amoxicillin-pot clavulanate 1 tab PO BID 7 Days #14 tab 12/17/18 Rx [Augmentin] Allergies Allergy/AdvReac Type Severity Reaction Status Date / Time No Known Allergies Allergy Verified 12/16/18 18:01 Past Med/Surg History Medical History Back pain History of injury to L3/L4 and S1 after injury at work. 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 and A total of 10 systems reviewed and were otherwise negative Physical Exam Vital Signs Vital Signs - 24 hr 12/16/18 19:27 12/16/18 19:28 12/16/18 19:30 Temperature Temperature Source Pulse Rate 100 H 102 H Pulse Rate [Left Brachial] Respiratory Rate 25 H 24 Respiratory Effort / Characteristics Respiratory Depth Respiratory Pattern Blood Pressure 141/87 H 138/94 Blood Pressure [Left Arm] Blood Pressure Mean 105 108 Blood Pressure Mean [Left Arm] Blood Pressure Position [Left Arm] Pulse Oximetry 99 99 Oxygen Delivery Method Room Air Room Air Room Air 12/16/18 20:01 12/16/18 20:30 12/16/18 21:00 Temperature 39.4 C H Temperature Source Pulse Rate 88 108 H 104 H Pulse Rate [Left Brachial] Respiratory Rate 21 19 24 Respiratory Effort / Characteristics Respiratory Depth Respiratory Pattern Blood Pressure 139/88 133/82 150/94 H Blood Pressure [Left Arm] Blood Pressure Mean 105 99 112 Blood Pressure Mean [Left Arm] Blood Pressure Position [Left Arm] Pulse Oximetry 99 98 99 Oxygen Delivery Method Room Air Room Air Room Air 12/16/18 21:30 12/16/18 22:01 12/16/18 22:31 Temperature Temperature Source Pulse Rate 110 H 105 H 100 H Pulse Rate [Left Brachial] Respiratory Rate 23 22 20 Respiratory Effort / Characteristics Respiratory Depth Respiratory Pattern Blood Pressure 135/78 149/96 H 137/97 Blood Pressure [Left Arm] Blood Pressure Mean 97 113 110 Blood Pressure Mean [Left Arm] Blood Pressure Position [Left Arm] Pulse Oximetry 98 99 98 Oxygen Delivery Method Room Air Room Air Room Air 12/16/18 23:00 12/16/18 23:25 12/17/18 03:30 Temperature 37 C 37.5 C Temperature Source Oral Oral Pulse Rate 101 H Pulse Rate [Left Brachial] 99 H 93 H Respiratory Rate 24 18 18 Respiratory Effort / Characteristics Non-Labored Spontaneous Non-Labored Spontaneous Respiratory Depth Normal Normal Respiratory Pattern Regular Regular Blood Pressure 141/79 H Blood Pressure [Left Arm] 131/77 160/99 H Blood Pressure Mean 99 Blood Pressure Mean [Left Arm] 95 119 Blood Pressure Position [Left Arm] Pulse Oximetry 99 Oxygen Delivery Method Room Air Room Air Room Air 12/17/18 03:53 12/17/18 05:10 12/17/18 08:15 Temperature 37.3 C 37 C 36.8 C Temperature Source Oral Oral Oral Pulse Rate Pulse Rate [Left Brachial] 108 H 92 H 82 Respiratory Rate 18 18 Respiratory Effort / Characteristics Non-Labored Non-Labored Spontaneous Respiratory Depth Normal Normal Respiratory Pattern Regular Regular Blood Pressure Blood Pressure [Left Arm] 163/101 H 128/87 169/108 H Blood Pressure Mean Blood Pressure Mean [Left Arm] 121 100 128 Blood Pressure Position [Left Arm] Sitting Sitting Pulse Oximetry 98 Oxygen Delivery Method Room Air 12/17/18 09:05 12/17/18 10:35 12/17/18 14:30 Temperature 37.1 C 37.4 C 38.4 C H Temperature Source Oral Oral Oral Pulse Rate Pulse Rate [Left Brachial] 115 H Respiratory Rate 20 Respiratory Effort / Characteristics Non-Labored Spontaneous Respiratory Depth Normal Respiratory Pattern Regular Blood Pressure Blood Pressure [Left Arm] 137/92 139/95 142/97 H Blood Pressure Mean Blood Pressure Mean [Left Arm] 107 109 112 Blood Pressure Position [Left Arm] Sitting Lying Sitting Pulse Oximetry 98 Oxygen Delivery Method Room Air 12/17/18 16:15 Temperature 37.0 C Temperature Source Oral Pulse Rate Pulse Rate [Left Brachial] 98 H Respiratory Rate 18 Respiratory Effort / Characteristics Non-Labored Spontaneous Respiratory Depth Respiratory Pattern Regular Blood Pressure Blood Pressure [Left Arm] 131/89 Blood Pressure Mean Blood Pressure Mean [Left Arm] 103 Blood Pressure Position [Left Arm] Sitting Pulse Oximetry Oxygen Delivery Method GENERAL: Well appearing, well nourished, NAD, non-toxic. Wearing glasses. EYE EXAM: Normal conjunctiva. PERRL, no anisocoria and EOM's grossly intact w/o pain. OROPHARYNX: Moist MM. No exudate, posterior pharynx is clear, no tonsillar/uvular deviation or swelling. NECK: Supple, no nuchal rigidity, no adenopathy, non-tender. No signs of meningismus. LUNGS: Clear to auscultation. Normal chest wall mechanics. HEART: Tachycardic, NSR, no MRG. ABDOMEN: Abdomen soft, normo-active bowel sounds, no masses, no rebound or guarding. Lower abdominal discomfort, transverse incisional wound well appearing with no purulent drainage or redness BREAST: Tender, hard area on bilateral lateral breast without erythema, fluctuance, or purulence. BACK: No CVA TTP. No overlying skin changes on the lower back. SKIN: No rashes and no bruising. UPPER EXTREMITIES: Upper extremities are grossly normal. LOWER EXTREMITIES: No pitting edema. No calf pain. Negative David's sign. NEURO EXAM: A and O x3. GCS 15. Cranial nerves II-XII grossly intact, normal speech, 5/5 strength throughout Moves all 4 extremities on command w/o issue Course 1811: Past medical records reviewed. The patient was evaluated in room C11A, and a complete history and physical examination were performed. 1955: I reevaluated the patient and she still is not feeling well with the chills. 2104: I spoke to Dr. Eric SILVEIRA about the patient's case and he is going to come evaluate her. 2109: I updated the patient on her results and treatment plan. 2144: After evaluating the patient, Dr. Reyes is going to accept her for further observation. Consultations Consultation #1: I spoke to Dr. Reyes - RAOUL about the patient's case and he is going to come evaluate her. Time: 21:05 Administered Medications Acetaminophen/Butalbital/Caffeine (Fioricet) 1 tab PO Q4H PRN PRN Reason: Headache Stop: 01/16/19 09:09 Last Admin: 12/17/18 09:34 Dose: 1 tab Documented by: [id number] Lactated Ringer's (Lr) 1,000 mls @ 125 mls/hr IV .Q8H HAYDEN Stop: 01/15/19 23:32 Last Infusion: 12/17/18 16:00 Dose: 0 mls/hr Documented by: [id number] Infusion: 12/17/18 04:27 Dose: 0 mls/hr Documented by: [id number] Admin: 12/17/18 04:09 Dose: 125 mls/hr Documented by: [id number] Infusion: 12/17/18 04:08 Dose: 125 mls/hr Documented by: [id number] Infusion: 12/17/18 03:42 Dose: 0 mls/hr Documented by: [id number] Admin: 12/16/18 23:53 Dose: 125 mls/hr Documented by: [id number] Piperacillin Sod/Tazobactam (Sod 3.375 gm/ Dextrose) 115 mls @ 28.75 mls/hr IV Q8H HAYDEN; Protocol Stop: 12/27/18 09:59 Last Admin: 12/17/18 18:06 Dose: 28.8 mls/hr Documented by: [id number] Infusion: 12/17/18 14:00 Dose: 28.8 mls/hr Documented by: [id number] Admin: 12/17/18 10:00 Dose: 28.8 mls/hr Documented by: [id number] Ibuprofen (Motrin) 600 mg PO Q4H PRN PRN Reason: Pain Stop: 01/15/19 23:32 Last Admin: 12/17/18 14:32 Dose: 600 mg Documented by: [id number] Admin: 12/17/18 03:26 Dose: 600 mg Documented by: [id number] Ioversol (Optiray 320 125ml) 125 ml IV ONCE PRN PRN Reason: Interaction Checking Stop: 12/21/18 05:06 Last Admin: 12/17/18 05:08 Dose: 91 ml Documented by: [id number] Magnesium Hydroxide (Milk Of Magnesia) 30 ml PO [facility] Stop: 01/15/19 23:32 Last Admin: 12/17/18 00:42 Dose: 30 ml Documented by: [id number] Oxycodone/Acetaminophen (Percocet 5mg/325mg) 1 - 2 tab PO Q4H PRN PRN Reason: Pain Stop: 12/30/18 23:32 Last Admin: 12/17/18 11:40 Dose: 1 tab Documented by: [id number] Prenat Multivit/Laurens/Iron/Folic Ac ( Vitamin) 1 tab PO QAM HAYDEN Stop: 01/16/19 08:59 Last Admin: 12/17/18 09:35 Dose: 1 tab Documented by: [id number] Sennosides (Senokot) 17.2 mg PO [facility] Stop: 01/15/19 23:32 Last Admin: 12/16/18 23:56 Dose: 17.2 mg Documented by: [id number] Discontinued Medications Sodium Chloride (Nss 1000ml) 1,000 mls @ 999 mls/hr IV .Q1H1M ONE Stop: 12/16/18 19:26 Last Infusion: 12/16/18 20:25 Dose: 0 mls/hr Documented by: [id number] Admin: 12/16/18 19:28 Dose: 999 mls/hr Documented by: [id number] Clindamycin Phosphate (Cleocin) 600 mg in 54 mls @ 100 mls/hr IV ONE ONE Stop: 12/16/18 20:13 Last Infusion: 12/16/18 20:37 Dose: 0 mls/hr Documented by: [id number] Admin: 12/16/18 19:58 Dose: 100 mls/hr Documented by: [id number] Sodium Chloride (Nss 1000ml) 1,000 mls @ 999 mls/hr IV .Q1H1M ONE Stop: 12/16/18 20:41 Last Infusion: 12/16/18 22:04 Dose: 0 mls/hr Documented by: [id number] Admin: 12/16/18 20:27 Dose: 999 mls/hr Documented by: [id number] Gentamicin Sulfate 440 mg/ (Dextrose) 111 mls @ 100 mls/hr IV NOW ONE Stop: 12/16/18 21:21 Last Infusion: 12/16/18 21:38 Dose: 0 mls/hr Documented by: [id number] Admin: 12/16/18 20:26 Dose: 100 mls/hr Documented by: [id number] Clindamycin Phosphate 900 mg/ (Dextrose) 106 mls @ 100 mls/hr IV Q8H HAYDEN Stop: 12/27/18 03:59 Last Infusion: 12/17/18 03:42 Dose: 0 mls/hr Documented by: [id number] Admin: 12/17/18 03:28 Dose: 100 mls/hr Documented by: [id number] Piperacillin Sod/Tazobactam (Sod 3.375 gm/ Dextrose) 115 mls @ 230 mls/hr IV NOW ONE Stop: 12/17/18 05:01 Last Admin: 12/17/18 05:34 Dose: 230 mls/hr Documented by: [id number] Ibuprofen (Advil) 400 mg PO NOW STA Stop: 12/16/18 20:53 Last Admin: 12/16/18 21:07 Dose: 400 mg Documented by: [id number] Metoclopramide HCl (Reglan) 10 mg IV NOW STA Stop: 12/16/18 18:27 Last Admin: 12/16/18 19:28 Dose: 10 mg Documented by: [id number] Medical Decision Making Medical Records Attestation: I reviewed the patient's medical records. Home Medications Current Medication List: was personally reviewed by me Laboratory Data Attestation: I reviewed the patient's lab results. Result diagrams: 12/17/18 15:36 12/17/18 06:00 Lab Results 12/16/18 12/16/18 12/16/18 Range/Units 19:10 19:10 19:10 WBC 14.02 H (4.8-10.8) K/uL RBC 3.57 L (4.2-5.4) M/uL Hgb 10.8 L (12.0-16.0) g/dL Hct 31.2 L (37-47) % MCV 87.4 (80-100) fL MCH 30.3 (25-34) pg MCHC 34.6 (32-36) g/dL RDW Std Deviation 44.7 (36.4-46.3) fL RDW Coeff of Maggy 13.9 (11.5-14.5) % Plt Count 380 (130-400) K/uL MPV 9.4 (7.4-10.4) fL Immature Gran % (Auto) 1.3 % Neut % (Auto) 82.0 % Lymph % (Auto) 10.8 % [place] % (Auto) 5.1 % Eos % (Auto) 0.7 % Baso % (Auto) 0.1 % Immature Gran # (Auto) 0.18 H (0.00-0.02) K/uL Neut # (Auto) 11.50 H (1.4-6.5) K/uL Lymph # (Auto) 1.51 (1.2-3.4) K/uL [place] # (Auto) 0.71 H (0.11-0.59) K/uL Eos # (Auto) 0.10 (0-0.5) K/uL Baso # (Auto) 0.02 (0-0.2) K/uL PT 9.8 (9.0-12.0) Seconds INR 1.0 (0.9-1.1) APTT 26.5 (21.0-31.0) Seconds PTT Ratio 1.0 Sodium 138 (136-145) mmol/L Potassium 3.9 (3.5-5.1) mmol/L Chloride 105 (98-107) mmol/L Carbon Dioxide 26 (21-32) mmol/L Anion Gap 7.0 (3-11) BUN 9 (7-18) mg/dl Creatinine 0.76 (0.6-1.2) mg/dl Est Cr Clr Drug Dosing 149.2 ml/min Est GFR ( Amer) 122.0 Est GFR (Non-Af Amer) 105.3 BUN/Creatinine Ratio 11.8 (10-20) Glucose 104 H (70-99) mg/dl Lactate (0.4-2.0) mmol/L Calcium 8.8 (8.5-10.1) mg/dl Total Bilirubin 0.3 (0.2-1) mg/dl AST 40 H (15-37) U/L ALT 66 (12-78) U/L Alkaline Phosphatase 163 H (45-117) U/L Troponin I (0-0.045) ng/ml Total Protein 7.7 (6.4-8.2) gm/dl Albumin 2.5 L (3.4-5.0) gm/dl Globulin 5.2 H (2.5-4.0) gm/dl Albumin/Globulin Ratio 0.5 L (0.9-2) Urine Color Urine Appearance (Clear) Urine pH (4.5-7.5) Ur Specific [place] (1.000-1.030) Urine Protein (Negative) Urine Glucose (UA) (Negative) Urine Ketones (Negative) Urine Blood (Negative) Urine Nitrite (Negative) Urine Bilirubin (Negative) Urine Urobilinogen (Negative) Ur Leukocyte Esterase (Negative) Urine WBC (Auto) (0-5) /hpf Urine RBC (Auto) (0-4) /hpf U Hyaline Cast (Auto) (0-5) /lpf U Epithel Cells (Auto) (0-5) /lpf Urine Bacteria (Auto) (Negative) Random Gentamicin mcg/ml Influenza Type A (PCR) (Neg) Influenza Type B (PCR) (Neg) 12/16/18 12/16/18 12/16/18 Range/Units 19:10 19:20 19:23 WBC (4.8-10.8) K/uL RBC (4.2-5.4) M/uL Hgb (12.0-16.0) g/dL Hct (37-47) % MCV (80-100) fL MCH (25-34) pg MCHC (32-36) g/dL RDW Std Deviation (36.4-46.3) fL RDW Coeff of Maggy (11.5-14.5) % Plt Count (130-400) K/uL MPV (7.4-10.4) fL Immature Gran % (Auto) % Neut % (Auto) % Lymph % (Auto) % [place] % (Auto) % Eos % (Auto) % Baso % (Auto) % Immature Gran # (Auto) (0.00-0.02) K/uL Neut # (Auto) (1.4-6.5) K/uL Lymph # (Auto) (1.2-3.4) K/uL [place] # (Auto) (0.11-0.59) K/uL Eos # (Auto) (0-0.5) K/uL Baso # (Auto) (0-0.2) K/uL PT (9.0-12.0) Seconds INR (0.9-1.1) APTT (21.0-31.0) Seconds PTT Ratio Sodium (136-145) mmol/L Potassium (3.5-5.1) mmol/L Chloride (98-107) mmol/L Carbon Dioxide (21-32) mmol/L Anion Gap (3-11) BUN (7-18) mg/dl Creatinine (0.6-1.2) mg/dl Est Cr Clr Drug Dosing ml/min Est GFR ( Amer) Est GFR (Non-Af Amer) BUN/Creatinine Ratio (10-20) Glucose (70-99) mg/dl Lactate 0.9 (0.4-2.0) mmol/L Calcium (8.5-10.1) mg/dl Total Bilirubin (0.2-1) mg/dl AST (15-37) U/L ALT (12-78) U/L Alkaline Phosphatase (45-117) U/L Troponin I (0-0.045) ng/ml Total Protein (6.4-8.2) gm/dl Albumin (3.4-5.0) gm/dl Globulin (2.5-4.0) gm/dl Albumin/Globulin Ratio (0.9-2) Urine Color Yellow Urine Appearance Clear (Clear) Urine pH 8.5 H (4.5-7.5) Ur Specific [place] 1.011 (1.000-1.030) Urine Protein Negative (Negative) Urine Glucose (UA) Negative (Negative) Urine Ketones Negative (Negative) Urine Blood 3+ H (Negative) Urine Nitrite Negative (Negative) Urine Bilirubin Negative (Negative) Urine Urobilinogen Negative (Negative) Ur Leukocyte Esterase 2+ H (Negative) Urine WBC (Auto) >30 H (0-5) /hpf Urine RBC (Auto) >30 H (0-4) /hpf U Hyaline Cast (Auto) 0 (0-5) /lpf U Epithel Cells (Auto) 20-30 H (0-5) /lpf Urine Bacteria (Auto) Negative (Negative) Random Gentamicin mcg/ml Influenza Type A (PCR) Neg for Influ A (Neg) Influenza Type B (PCR) Neg for Influ B (Neg) 12/17/18 12/17/18 12/17/18 Range/Units 06:00 06:00 06:00 WBC 13.37 H (4.8-10.8) K/uL RBC 3.17 L (4.2-5.4) M/uL Hgb 9.3 L (12.0-16.0) g/dL Hct 27.3 L (37-47) % MCV 86.1 (80-100) fL MCH 29.3 (25-34) pg MCHC 34.1 (32-36) g/dL RDW Std Deviation 44.4 (36.4-46.3) fL RDW Coeff of Maggy 14.1 (11.5-14.5) % Plt Count 322 (130-400) K/uL MPV 9.1 (7.4-10.4) fL Immature Gran % (Auto) 1.1 % Neut % (Auto) 82.5 % Lymph % (Auto) 7.6 % [place] % (Auto) 8.3 % Eos % (Auto) 0.4 % Baso % (Auto) 0.1 % Immature Gran # (Auto) 0.15 H (0.00-0.02) K/uL Neut # (Auto) 11.02 H (1.4-6.5) K/uL Lymph # (Auto) 1.01 L (1.2-3.4) K/uL [place] # (Auto) 1.11 H (0.11-0.59) K/uL Eos # (Auto) 0.06 (0-0.5) K/uL Baso # (Auto) 0.02 (0-0.2) K/uL PT (9.0-12.0) Seconds INR (0.9-1.1) APTT (21.0-31.0) Seconds PTT Ratio Sodium (136-145) mmol/L Potassium (3.5-5.1) mmol/L Chloride (98-107) mmol/L Carbon Dioxide (21-32) mmol/L Anion Gap (3-11) BUN (7-18) mg/dl Creatinine 0.58 L (0.6-1.2) mg/dl Est Cr Clr Drug Dosing 195.5 ml/min Est GFR ( Amer) 143.4 Est GFR (Non-Af Amer) 123.7 BUN/Creatinine Ratio (10-20) Glucose (70-99) mg/dl Lactate (0.4-2.0) mmol/L Calcium (8.5-10.1) mg/dl Total Bilirubin (0.2-1) mg/dl AST (15-37) U/L ALT (12-78) U/L Alkaline Phosphatase (45-117) U/L Troponin I (0-0.045) ng/ml Total Protein (6.4-8.2) gm/dl Albumin (3.4-5.0) gm/dl Globulin (2.5-4.0) gm/dl Albumin/Globulin Ratio (0.9-2) Urine Color Urine Appearance (Clear) Urine pH (4.5-7.5) Ur Specific [place] (1.000-1.030) Urine Protein (Negative) Urine Glucose (UA) (Negative) Urine Ketones (Negative) Urine Blood (Negative) Urine Nitrite (Negative) Urine Bilirubin (Negative) Urine Urobilinogen (Negative) Ur Leukocyte Esterase (Negative) Urine WBC (Auto) (0-5) /hpf Urine RBC (Auto) (0-4) /hpf U Hyaline Cast (Auto) (0-5) /lpf U Epithel Cells (Auto) (0-5) /lpf Urine Bacteria (Auto) (Negative) Random Gentamicin 0.60 mcg/ml Influenza Type A (PCR) (Neg) Influenza Type B (PCR) (Neg) 12/17/18 12/17/18 12/17/18 Range/Units 06:00 06:00 10:48 WBC (4.8-10.8) K/uL RBC (4.2-5.4) M/uL Hgb (12.0-16.0) g/dL Hct (37-47) % MCV (80-100) fL MCH (25-34) pg MCHC (32-36) g/dL RDW Std Deviation (36.4-46.3) fL RDW Coeff of Maggy (11.5-14.5) % Plt Count (130-400) K/uL MPV (7.4-10.4) fL Immature Gran % (Auto) % Neut % (Auto) % Lymph % (Auto) % [place] % (Auto) % Eos % (Auto) % Baso % (Auto) % Immature Gran # (Auto) (0.00-0.02) K/uL Neut # (Auto) (1.4-6.5) K/uL Lymph # (Auto) (1.2-3.4) K/uL [place] # (Auto) (0.11-0.59) K/uL Eos # (Auto) (0-0.5) K/uL Baso # (Auto) (0-0.2) K/uL PT (9.0-12.0) Seconds INR (0.9-1.1) APTT (21.0-31.0) Seconds PTT Ratio Sodium 138 (136-145) mmol/L Potassium 3.7 (3.5-5.1) mmol/L Chloride 108 H (98-107) mmol/L Carbon Dioxide 22 (21-32) mmol/L Anion Gap 8.0 (3-11) BUN 10 (7-18) mg/dl Creatinine 0.59 L (0.6-1.2) mg/dl Est Cr Clr Drug Dosing 192.2 ml/min Est GFR ( Amer) 142.5 Est GFR (Non-Af Amer) 123.0 BUN/Creatinine Ratio 16.5 (10-20) Glucose 114 H (70-99) mg/dl Lactate (0.4-2.0) mmol/L Calcium 8.1 L (8.5-10.1) mg/dl Total Bilirubin 0.4 (0.2-1) mg/dl AST 31 (15-37) U/L ALT 52 (12-78) U/L Alkaline Phosphatase 139 H (45-117) U/L Troponin I < 0.015 < 0.015 (0-0.045) ng/ml Total Protein 6.8 (6.4-8.2) gm/dl Albumin 2.1 L (3.4-5.0) gm/dl Globulin 4.7 H (2.5-4.0) gm/dl Albumin/Globulin Ratio 0.4 L (0.9-2) Urine Color Urine Appearance (Clear) Urine pH (4.5-7.5) Ur Specific [place] (1.000-1.030) Urine Protein (Negative) Urine Glucose (UA) (Negative) Urine Ketones (Negative) Urine Blood (Negative) Urine Nitrite (Negative) Urine Bilirubin (Negative) Urine Urobilinogen (Negative) Ur Leukocyte Esterase (Negative) Urine WBC (Auto) (0-5) /hpf Urine RBC (Auto) (0-4) /hpf U Hyaline Cast (Auto) (0-5) /lpf U Epithel Cells (Auto) (0-5) /lpf Urine Bacteria (Auto) (Negative) Random Gentamicin mcg/ml Influenza Type A (PCR) (Neg) Influenza Type B (PCR) (Neg) 12/17/18 12/17/18 Range/Units 15:36 15:36 WBC 12.65 H (4.8-10.8) K/uL RBC 3.12 L (4.2-5.4) M/uL Hgb 9.1 L (12.0-16.0) g/dL Hct 27.0 L (37-47) % MCV 86.5 (80-100) fL MCH 29.2 (25-34) pg MCHC 33.7 (32-36) g/dL RDW Std Deviation 44.6 (36.4-46.3) fL RDW Coeff of Maggy 14.1 (11.5-14.5) % Plt Count 339 (130-400) K/uL MPV 9.2 (7.4-10.4) fL Immature Gran % (Auto) 1.7 % Neut % (Auto) 73.6 % Lymph % (Auto) 13.7 % [place] % (Auto) 9.7 % Eos % (Auto) 1.1 % Baso % (Auto) 0.2 % Immature Gran # (Auto) 0.22 H (0.00-0.02) K/uL Neut # (Auto) 9.31 H (1.4-6.5) K/uL Lymph # (Auto) 1.73 (1.2-3.4) K/uL [place] # (Auto) 1.23 H (0.11-0.59) K/uL Eos # (Auto) 0.14 (0-0.5) K/uL Baso # (Auto) 0.02 (0-0.2) K/uL PT (9.0-12.0) Seconds INR (0.9-1.1) APTT (21.0-31.0) Seconds PTT Ratio Sodium (136-145) mmol/L Potassium (3.5-5.1) mmol/L Chloride (98-107) mmol/L Carbon Dioxide (21-32) mmol/L Anion Gap (3-11) BUN (7-18) mg/dl Creatinine (0.6-1.2) mg/dl Est Cr Clr Drug Dosing ml/min Est GFR ( Amer) Est GFR (Non-Af Amer) BUN/Creatinine Ratio (10-20) Glucose (70-99) mg/dl Lactate (0.4-2.0) mmol/L Calcium (8.5-10.1) mg/dl Total Bilirubin (0.2-1) mg/dl AST (15-37) U/L ALT (12-78) U/L Alkaline Phosphatase (45-117) U/L Troponin I < 0.015 (0-0.045) ng/ml Total Protein (6.4-8.2) gm/dl Albumin (3.4-5.0) gm/dl Globulin (2.5-4.0) gm/dl Albumin/Globulin Ratio (0.9-2) Urine Color Urine Appearance (Clear) Urine pH (4.5-7.5) Ur Specific [place] (1.000-1.030) Urine Protein (Negative) Urine Glucose (UA) (Negative) Urine Ketones (Negative) Urine Blood (Negative) Urine Nitrite (Negative) Urine Bilirubin (Negative) Urine Urobilinogen (Negative) Ur Leukocyte Esterase (Negative) Urine WBC (Auto) (0-5) /hpf Urine RBC (Auto) (0-4) /hpf U Hyaline Cast (Auto) (0-5) /lpf U Epithel Cells (Auto) (0-5) /lpf Urine Bacteria (Auto) (Negative) Random Gentamicin mcg/ml Influenza Type A (PCR) (Neg) Influenza Type B (PCR) (Neg) Imaging Data Radiologist's Impression: Radiology results as stated below per my review and the radiologist's interpretation: XR chest 1V portable CLINICAL HISTORY: Sepsis dyspnea COMPARISON STUDY: No previous studies for comparison. FINDINGS: The bones soft tissues and hemidiaphragms are normal. The cardiomediastinal silhouette is normal. The lungs are clear. The pulmonary vasculature is normal. IMPRESSION: Negative chest. The above report was generated using voice recognition software. It may contain grammatical, syntax or spelling errors. Electronically signed by: Julián Bal M.D. 12/16/2018 6:51 PM ECG Data Attestation: I personally reviewed and interpreted this ECG as follows: Indication: tachycardia Rate (beats per minute): 99 Rhythm: normal sinus Findings: + other (Normal intervals, normal axis) and + T-wave inversion (Lead V2); no acute ischemic change Blood Pressure Blood Pressure Findings: Normal blood pressure MDM Narrative The patient is a 28 year old female w/ PMHx degenerative arthritis, recent born via at 40 weeks 6 days, and a prolonged who presents to the ED w/ CC of a constant fever tht started about 3 hours ago, at 1500. Differential diagnosis: Etiologies such as post- endometritis, viral syndrome, otitis, pharyngitis, pneumonia, influenza, meningitis, urinary tract infection, sepsis, bacteremia, as well as others were entertained. Patient was seen and evaluated the bedside. The patient did have a recent C- section approxi-4 days prior and has developed a fever and associated mild lower abdominal pain. Patient denies cough. Patient exam does have some mild lower abdominal discomfort. Patient denies any foul-smelling drainage. Patient's incisional sites look well-healed. Patient does have some mild breast tenderness and areas of firmness but there is no indication of overlying skin changes consistent with either breast abscess mastitis or cellulitis. Patient's blood work did show a white count. The patient was tachycardic and febrile. I am concerned about the possibility of endometritis. The patient was covered with broad-spectrum antibiotics appropriate given the patient's likely diagnosis. I did speak with the on-call MEDICAL SALES ASSOCIATE physician who did evaluate and subsequently did admit the patient. Impression & Plan endometritis Critical Care Time I have personally spent greater than 45 minutes of critical care time in direct management of this patient. This includes bedside care, interpretation of diagnostic studies, and testing, discussion with consultants, patient, and family members, and other require inpatient management activities. This 45 minutes is in excess of all separately billable procedures. Critical Care Time: Yes Total Critical Care Time: 45 Discharge Plan Visit Data *Final* Discharge Date/Time: 12/16/18 23:09 Chief Complaint: Fever Stated Complaint: FEVER - S/P 12/12/18 ED Provider: Yoandy,Meng D Discharge Problem: endometritis Patient Disposition: Admitted As Inpatient Discharge Instructions Interventions: ED Discharge Assessment Last Done: 12/16/18 23:09 The scribe's documentation has been prepared under my direction and personally reviewed by me in its entirety. I confirm that the note above accurately reflects all work, treatment, procedures, and medical decision making performed by me.
[2018-12-17] MEDS ORDERED: BUTORPHANOL TARTRATE 1 MG/ML VIAL IV PRN (03:15)
[2018-12-17] MEDS: IBUPROFEN 600 MG TAB PO PRN ×3 (03:26→19:44)
[2018-12-17] MEDS ORDERED: CLINDAMYCIN 900 MG in DEXTROSE 5% 100 ML IV SCH (04:00)
--- NOTE | 2018-12-17 04:03 | Obstetrical Progress Note ---
Date of Service December 17, 2018 Assessment & Plan (1) Chest pain: Coincident with the patient's chest pain is elevated blood pressure. Blood pressures have been elevated since admission. Reviewing laboratory values the patient has no proteinuria, she has normal platelet count, her SGPT is mi ldly elevated but does not meet criteria for elevated liver function test. I do not believe this is preeclampsia. While this would be a very allergic reaction to an antibiotic, cannot rule that out. Gentamicin clindamycin will be discontinued and the patient will be changed to Zosyn. [facility] hospitalist group has been consulted for a urgent consult. Subjective Patient complaining of chest pain after starting infusion of IV clindamycin. Patient received clindamycin previously in the emergency room without problem. Physical Exam Vital Signs (Past 24 Hours): Last Vital Signs Temp 37 C 12/16/18 23:25 Pulse 99 H 12/16/18 23:25 Resp 18 12/16/18 23:25 BP 131/77 12/16/18 23:25 Pulse Ox 99 12/16/18 23:00 Constitutional: No acute distress Respiratory: Auscultation: lungs clear to auscultation bilaterally Cardiovascular: Rate/Rhythm: + tachycardic
[2018-12-17] MEDS ORDERED: PIPERACILL/TAZOBAC CONSULT ACTIVE PRN (04:07)
[2018-12-17] MEDS: LACTATED RINGER'S 1,000 ML IV SCH (04:09)
[2018-12-17] MEDS ORDERED: PIPERACILLIN/TAZOBACTAM 3.375 GM in DEXTROSE 5% 100 ML IV ONE (04:32)
[2018-12-17] MEDS ORDERED: OPTIRAY 320 125ml IV PRN (05:07)
[2018-12-17 06:19] LABS: Basophils # (auto) 0.02 K/uL (0-0.2); Basophils % (auto) 0.1 %; Eosinophils # (auto) 0.06 K/uL (0-0.5); Eosinophils % (auto) 0.4 %; Hematocrit (blood only) 27.3 % (37-47); Hemoglobin 9.3 g/dL (12.0-16.0); Immature Granulocytes # (auto) 0.15 K/uL (0.00-0.02); Immature Granulocytes % (auto) 1.1 %; Lymphocytes # (auto) 1.01 K/uL (1.2-3.4); Lymphocytes % (auto) 7.6 %; Mean Corpuscular Hgb Conc 34.1 g/dL (32-36); Mean Corpuscular Volume 86.1 fL (80-100); Mean Platelet Volume 9.1 fL (7.4-10.4); Monocytes # (auto) 1.11 K/uL (0.11-0.59); Monocytes % (auto) 8.3 %; Neutrophils # (auto) 11.02 K/uL (1.4-6.5); Neutrophils % (auto) 82.5 %; Platelet Count 322 K/uL (130-400); RDW Coefficient of Variation 14.1 % (11.5-14.5); RDW Standard Deviation 44.4 fL (36.4-46.3); Red Blood Count 3.17 M/uL (4.2-5.4); White Blood Count 13.37 K/uL (4.8-10.8)
--- NOTE | 2018-12-17 06:45 | Obstetrical Progress Note ---
Date of Service December 17, 2018 Assessment & Plan (1) endometritis: - patient switched to zosyn for possible reaction to clindamycin - w/u for PE pending - patient states she can feel her heart race.chest tightening when talking to me - ? panic attacks - follow BP - await medicine recommendations Subjective Feels anxious when talking Physical Exam Vital Signs (Past 24 Hours): Last Vital Signs Temp 37 C 12/17/18 05:10 Pulse 92 H 12/17/18 05:10 Resp 18 12/17/18 05:10 BP 128/87 12/17/18 05:10 Pulse Ox 99 12/16/18 23:00
[2018-12-17 06:52] LABS: Creatinine Clr Calc Pharmacy 195.5 ml/min; Est GFR (African American) 143.4; Est GFR (Non-African American) 123.7
--- NOTE | 2018-12-17 06:52 | Hospitalist Consultation ---
Date of Consultation December 17, 2018 Assessment & Plan (1) Chest pain: Unlikely that this pain is cardiac in nature. However, will order serial troponins and deal with them appropriately. Of more concern to not be missed, would be a possibility of pulmonary embolism in the state. We therefore will order CT angiography PE protocol. The patient has been taking Motrin orally as well, and the symptoms may be associated with reflux and/or esophageal spasm. Options would be to change to IV Toradol, and/or take an acid reduction medication such as famotidine, or pantoprazole. Suspect blood pressure elevation is reactive, but if persists could use short acting Cardizem 30 mg p.o. every 6 hours as needed systolic blood pressure above 160. Present on Admission?: Yes (2) Right bundle branch block (RBBB): EKG with no acute suggestion of ischemia or previous injury. Explained right bundle branch block is most likely normal, however, in light of her symptoms, will order a CT angiography PE protocol. Present on Admission?: Yes (3) Lower extremity edema: Asymmetric mild edema right greater than left. Upon questioning does report some mild cramping in lower extremities. We will order venous Dopplers to assess for possible DVT Present on Admission?: Yes (4) endometritis: Continue with gentamicin IV and clindamycin IV. Unlikely with clindamycin IV would be contributing to and /or causing the patient's chest discomfort. Present on Admission?: Yes History of Present Illness Reason for Consultation: Assessment of chest pain. Attending Physician: Isaak Reyes Jr, MD, FACOG History of Present Illness Patient is a 28-year-old female admitted to the [facility] service for treatment of endometritis being treated with gentamicin IV and clindamycin IV per Dr. Reyes. The patient reports the pain as being substernal, changes somewhat with inspiration, and does have some improvement with oral Motrin. She is concerned that the pain may have begun after treatment with clindamycin IV, however, this medication tolerated well while in the emergency department. She does not have a cough or fevers or chills. Allergies Allergy/AdvReac Type Severity Reaction Status Date / Time No Known Allergies Allergy Verified 12/16/18 18:01 Home Medications Home Medications Medication Instructions Recorded Confirmed Type 1 tab PO DAILY 10/04/18 12/16/18 History diphenhydramine HCl [Unisom 50 mg PO HS PRN 10/04/18 12/16/18 History Sleepgels] ferrous sulfate [iron] 325 mg PO 3XWK 10/04/18 12/16/18 History [id number] 1 tab PO Q8 PRN 10 Days #30 tab 12/15/18 12/16/18 Rx oxycodone-acetaminophen [Percocet] 1 - 2 tab PO Q4H PRN 5 Days #20 tab 12/15/18 12/16/18 Rx polyethylene glycol 3350 [Miralax] 17 g PO DAILY PRN 12/16/18 12/16/18 History Patient History Medical History Back pain History of injury to L3/L4 and S1 after injury at work. 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 The review of systems is otherwise negative other than for that already noted above, and at least 10 systems have been reviewed. Physical Exam Vital Signs (Past 24 Hours): Last Vital Signs Temp 37 C 12/17/18 05:10 Pulse 92 H 12/17/18 05:10 Resp 18 12/17/18 05:10 BP 128/87 12/17/18 05:10 Pulse Ox 99 12/16/18 23:00 Physical Exam: The patient is awake, alert and oriented �3, well developed and well nourished, normocephalic and atraumatic, lying in bed and in no acute distress. HEENT--PERRL, EOMI, mucous membranes and oropharynx normal. Neck--supple. No JVD. No bruits. Thyroid normal, trachea midline, no adenopathy. Heart--normal S1 and S2. No murmurs, rubs or gallops. Lungs--clear bilaterally, no respiratory distress, no accessory muscle use. Abdomen--normal bowel sounds and soft. Nontender. Nondistended. Extremities--no cyanosis or clubbing. No edema. There are good distal pulses b/l. Dermatologic--normal skin turgor, normal color, no abnormal lymph nodes, no rash. Neurologic--cranial nerves II through XII grossly intact. Rheumatologic--normal range of motion. Psychiatric--appears mildly anxious. Results & Data Laboratory Results Laboratory Results WBC 13.37 K/uL (4.8-10.8) H 12/17/18 06:00 RBC 3.17 M/uL (4.2-5.4) L 12/17/18 06:00 Hgb 9.3 g/dL (12.0-16.0) L 12/17/18 06:00 Hct 27.3 % (37-47) L 12/17/18 06:00 MCV 86.1 fL (80-100) 12/17/18 06:00 MCH 29.3 pg (25-34) 12/17/18 06:00 MCHC 34.1 g/dL (32-36) 12/17/18 06:00 RDW Std Deviation 44.4 fL (36.4-46.3) 12/17/18 06:00 RDW Coeff of Maggy 14.1 % (11.5-14.5) 12/17/18 06:00 Plt Count 322 K/uL (130-400) 12/17/18 06:00 MPV 9.1 fL (7.4-10.4) 12/17/18 06:00 Immature Gran % (Auto) 1.1 % 12/17/18 06:00 Neut % (Auto) 82.5 % 12/17/18 06:00 Lymph % (Auto) 7.6 % 12/17/18 06:00 [place] % (Auto) 8.3 % 12/17/18 06:00 Eos % (Auto) 0.4 % 12/17/18 06:00 Baso % (Auto) 0.1 % 12/17/18 06:00 Immature Gran # (Auto) 0.15 K/uL (0.00-0.02) H 12/17/18 06:00 Neut # (Auto) 11.02 K/uL (1.4-6.5) H 12/17/18 06:00 Lymph # (Auto) 1.01 K/uL (1.2-3.4) L 12/17/18 06:00 [place] # (Auto) 1.11 K/uL (0.11-0.59) H 12/17/18 06:00 Eos # (Auto) 0.06 K/uL (0-0.5) 12/17/18 06:00 Baso # (Auto) 0.02 K/uL (0-0.2) 12/17/18 06:00 PT 9.8 Seconds (9.0-12.0) 12/16/18 19:10 INR 1.0 (0.9-1.1) 12/16/18 19:10 APTT 26.5 Seconds (21.0-31.0) 12/16/18 19:10 PTT Ratio 1.0 12/16/18 19:10 Sodium 138 mmol/L (136-145) 12/16/18 19:10 Potassium 3.9 mmol/L (3.5-5.1) 12/16/18 19:10 Chloride 105 mmol/L (98-107) 12/16/18 19:10 Carbon Dioxide 26 mmol/L (21-32) 12/16/18 19:10 Anion Gap 7.0 (3-11) 12/16/18 19:10 BUN 9 mg/dl (7-18) 12/16/18 19:10 Creatinine 0.76 mg/dl (0.6-1.2) 12/16/18 19:10 Est Cr Clr Drug Dosing 149.2 ml/min 12/16/18 19:10 Est GFR ( Amer) 122.0 12/16/18 19:10 Est GFR (Non-Af Amer) 105.3 12/16/18 19:10 BUN/Creatinine Ratio 11.8 (10-20) 12/16/18 19:10 Glucose 104 mg/dl (70-99) H 12/16/18 19:10 Lactate 0.9 mmol/L (0.4-2.0) 12/16/18 19:10 Calcium 8.8 mg/dl (8.5-10.1) 12/16/18 19:10 Total Bilirubin 0.3 mg/dl (0.2-1) 12/16/18 19:10 AST 40 U/L (15-37) H 12/16/18 19:10 ALT 66 U/L (12-78) 12/16/18 19:10 Alkaline Phosphatase 163 U/L (45-117) H 12/16/18 19:10 Troponin I < 0.015 ng/ml (0-0.045) 12/17/18 06:00 Total Protein 7.7 gm/dl (6.4-8.2) 12/16/18 19:10 Albumin 2.5 gm/dl (3.4-5.0) L 12/16/18 19:10 Globulin 5.2 gm/dl (2.5-4.0) H 12/16/18 19:10 Albumin/Globulin Ratio 0.5 (0.9-2) L 12/16/18 19:10 Urine Color Yellow 12/16/18 19:20 Urine Appearance Clear (Clear) 12/16/18 19:20 Urine pH 8.5 (4.5-7.5) H 12/16/18 19:20 Ur Specific [place] 1.011 (1.000-1.030) 12/16/18 19:20 Urine Protein Negative (Negative) 12/16/18 19:20 Urine Glucose (UA) Negative (Negative) 12/16/18 19:20 Urine Ketones Negative (Negative) 12/16/18 19:20 Urine Blood 3+ (Negative) H 12/16/18 19:20 Urine Nitrite Negative (Negative) 12/16/18 19:20 Urine Bilirubin Negative (Negative) 12/16/18 19:20 Urine Urobilinogen Negative (Negative) 12/16/18 19:20 Ur Leukocyte Esterase 2+ (Negative) H 12/16/18 19:20 Urine WBC (Auto) >30 /hpf (0-5) H 12/16/18 19:20 Urine RBC (Auto) >30 /hpf (0-4) H 12/16/18 19:20 U Hyaline Cast (Auto) 0 /lpf (0-5) 12/16/18 19:20 U Epithel Cells (Auto) 20-30 /lpf (0-5) H 12/16/18 19:20 Urine Bacteria (Auto) Negative (Negative) 12/16/18 19:20 Random Gentamicin 0.60 mcg/ml 12/17/18 06:00 Influenza Type A (PCR) Neg for Influ A (Neg) 12/16/18 19:23 Influenza Type B (PCR) Neg for Influ B (Neg) 12/16/18 19:23 Diagnostic Findings [place], [place] [phone] XRay Report Patient: TIFFANIE BOWERS Date: 12/16/18 MR#: [id number]: [address] Acct ID:[id number]: Date: 1990[facility] Zip: [place] [address] Age: 28Location: ED Sex: F Room/Bed: Att Phy: Diagnosis: FEVER - S/P 12/12/18 Mily Phy: PCP,NO Service Date: 12/16/18 Fam Phy: Interpreting Phy: Julián Bal MD Admit Phy: Ordering Phy: Meng Pitt M.D. cc: ~ XR chest 1V portable CLINICAL HISTORY: Sepsis dyspnea COMPARISON STUDY: No previous studies for comparison. FINDINGS: The bones soft tissues and hemidiaphragms are normal. The cardiomediastinal silhouette is normal. The lungs are clear. The pulmonary vasculature is normal. IMPRESSION: Negative chest. The above report was generated using voice recognition software. It may contain grammatical, syntax or spelling errors. Electronically signed by: Julián Bal M.D. 12/16/2018 6:51 PM Dictated: 12/16/181849 Transcribed: 12/16/181849
--- NOTE | 2018-12-17 07:07 | Ultrasound Report ---
BILATERAL LOWER EXTREMITY VENOUS DOPPLER HISTORY: Short of breath. Atypical chest pain, tachycardia COMPARISON STUDY: None. FINDINGS: There is normal compressibility, flow, and augmentation within the bilateral lower extremit y deep venous systems. IMPRESSION: No DVT within the right or left lower extremity. Electronically signed by: Leo Ellis M.D. 12/17/2018 7:06 AM
--- NOTE | 2018-12-17 07:23 | CT Scan Report ---
CT ANGIOGRAM OF THE CHEST CLINICAL HISTORY: Sepsis. Recent section delivery. COMPARISON STUDY: Chest x-ray dated 12/16/2018. TECHNIQUE: Following the IV administration of 91 cc of Optiray 320, CT angiogram of the chest was per formed from the upper abdomen to the thoracic inlet utilizing the pulmonary embolus protocol. Images are reviewed in the axial, sagittal, and coronal planes. 3-D MIPS images are created and assessed. IV contrast was administered without complication. A dose lowering technique was utilized adhering to the principles of ALARA. CT DOSE: 551.09 mGy.cm FINDINGS: Thyroid: Imaged portions of the thyroid gland are normal in size and attenuation. Thoracic aorta: The thoracic aorta is normal in caliber and demonstrates standard 3-vessel arch anato my. No dissection is seen. Pulmonary vasculature: The pulmonary trunk is normal in caliber. There are no filling defects identif ied in main, lobar, or proximal segmental pulmonary branches to suggest pulmonary embolus. Evaluation of the peripheral branches is modestly degraded by motion artifact. Heart: The heart is normal in size and without pericardial effusion. Lungs and pleural spaces: There are trace pleural effusions. There is no airspace consolidation typic al for pneumonia. The trachea and central airways are clear. Mediastinum: There is no mediastinal lymphadenopathy. Krupa: Clear. Axillae: There is no axillary lymphadenopathy. Upper abdomen: The spleen is enlarged, measuring 15.1 cm in length. Upper abdominal viscera is otherw ise normal as imaged. Skeletal structures: No lytic or blastic bony lesions are seen. IMPRESSION: 1. There is no evidence of pulmonary embolus in the main, lobar, or proximal segmental pulmonary kezia aditya. 2. Trace pleural effusions. 3. Mild splenomegaly. Electronically signed by: Benton Felipe M.D. 12/17/2018 7:21 AM
[2018-12-17] MEDS ORDERED: PRENATAL VITAMIN 1 TAB PO SCH (09:00)
[2018-12-17] MEDS ORDERED: BUTALBITAL/ACETAMIN/CAFFEINE TAB PO PRN (09:10)
--- NOTE | 2018-12-17 09:37 | Obstetrical Progress Note ---
Date of Service December 17, 2018 Subjective Patient complains of headache, frontal. She is eating/drinking well. She is nursing baby. Was discharged home on Fioricet, asking for this for headache. BPs are occasionally elevated, most recent was 169/108 with repeat 137/92. Preeclampsia labs: platelets wnl on this morning's CBC, will check CMP for liver/kidney function. I discussed this with patient, will provide fioricet now, and will await labs. She is agreeable. Physical Exam Vital Signs (Past 24 Hours): Last Vital Signs Temp 37 C 12/17/18 05:10 Pulse 92 H 12/17/18 05:10 Resp 18 12/17/18 05:10 BP 128/87 12/17/18 05:10 Pulse Ox 99 12/16/18 23:00
--- NOTE | 2018-12-17 09:49 | Anesthesiology Progress Note ---
Date of Service December 17, 2018 Anesthesia Post Procedure Vital Signs Vital Signs: Temp Pulse Pulse Resp BP BP Pulse Ox 12/17/18 05:10 37 C 92 H 18 128/87 12/17/18 03:53 37.3 C 108 H 163/101 H 12/17/18 03:30 37.5 C 93 H 18 160/99 H 12/16/18 23:25 37 C 99 H 18 131/77 12/16/18 23:00 101 H 24 141/79 H 99 12/16/18 22:31 100 H 20 137/97 98 12/16/18 22:01 105 H 22 149/96 H 99 12/16/18 21:30 110 H 23 135/78 98 12/16/18 21:00 104 H 24 150/94 H 99 12/16/18 20:30 39.4 C H 108 H 19 133/82 98 12/16/18 20:01 88 21 139/88 99 12/16/18 19:30 102 H 24 138/94 99 12/16/18 19:27 100 H 25 H 141/87 H 99 12/16/18 17:41 36.9 C 121 H 20 141/90 H 99 Pain Intensity Abdomen: Pain Intensity: 2 Notes Notes: Attempted to call the patient at home to follow-up with her since her dis charge. No answer at the primary phone number listed in our records. I left I HIPPA compliant message. Will attempt to call again later.
[2018-12-17] MEDS: PIPERACILLIN/TAZOBACTAM 3.375 GM in DEXTROSE 5% 100 ML IV SCH ×2 (10:00→18:06)
[2018-12-17 10:16] LABS: Albumin Level 2.1 gm/dl (3.4-5.0); BUN Creatinine Ratio 16.5 (10-20); Calcium 8.1 mg/dl (8.5-10.1); Creatinine Clr Calc Pharmacy 192.2 ml/min; Est GFR (African American) 142.5; Potassium 3.7 mmol/L (3.5-5.1)
[2018-12-17 10:19] LABS: Albumin Globulin Ratio 0.4 (0.9-2); Bilirubin,Total 0.4 mg/dl (0.2-1); Globulin 4.7 gm/dl (2.5-4.0); Total Protein 6.8 gm/dl (6.4-8.2)
[2018-12-17 15:51] LABS: Basophils # (auto) 0.02 K/uL (0-0.2); Basophils % (auto) 0.2 %; Eosinophils # (auto) 0.14 K/uL (0-0.5); Eosinophils % (auto) 1.1 %; Hemoglobin 9.1 g/dL (12.0-16.0); Immature Granulocytes # (auto) 0.22 K/uL (0.00-0.02); Immature Granulocytes % (auto) 1.7 %; Lymphocytes # (auto) 1.73 K/uL (1.2-3.4); Lymphocytes % (auto) 13.7 %; Mean Corpuscular Hgb Conc 33.7 g/dL (32-36); Mean Corpuscular Volume 86.5 fL (80-100); Mean Platelet Volume 9.2 fL (7.4-10.4); Monocytes # (auto) 1.23 K/uL (0.11-0.59); Monocytes % (auto) 9.7 %; Neutrophils # (auto) 9.31 K/uL (1.4-6.5); Neutrophils % (auto) 73.6 %; Platelet Count 339 K/uL (130-400); RDW Coefficient of Variation 14.1 % (11.5-14.5); RDW Standard Deviation 44.6 fL (36.4-46.3); Red Blood Count 3.12 M/uL (4.2-5.4); White Blood Count 12.65 K/uL (4.8-10.8)
--- NOTE | 2018-12-17 17:51 | Obstetrical Progress Note ---
Date of Service December 17, 2018 Subjective Checked in on patient. She had elevated temp at 1430 today, 38.4 taken by Gini Gonzalez RN. Patient then stated that she took her own temperature with the equipment after RN left room and that it was actually 100.2, and questioned whether that was an incorrect reading. No other readings. She has not had any other elevated temps since ER. She is telling me that she feels very good, and does not feel sick at all. She is ambulating in the room, eating/drinking well, urinating ok, denies nausea/vomiting. We reviewed all potential causes of fever and have ruled these out - DVT/PE ruled out with imaging, urine is pending but only pinpoint growth, no atelectasis/pneumonia on CT chest, no bowel perf due to lack of symptoms/imaging, incision looks healthy, no severe fundal tenderness that could indicate endometritis, no evidence of mastitis. White count has trended to normal. We discussed that this fever could potentially have been caused by milk letdown. She and I discussed her anxiety level - she states her anxiety level was high before delivery, as she and FOB were asked by their landlord to leave their rental home within the past few months, and they had to move. 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 She feels like they are living paycheck to paycheck. She denies suicidal/homicidal/infanticidal thoughts, and does not feel like she has depression. I discussed with her that I think many patients have difficulty with anxiety after delivery, and she has so many other life stressors that she may be at increased risk of this. She is receptive to this idea and tells me she might start searching for a counselor that is covered by their insurance. Plan for now is to give next dose of Zosyn, patient will get some rest, and if no further fevers and continuing to feel well, will be ok for discharge after 8:30 tonight. She is agreeable to this plan. Physical Exam Vital Signs (Past 24 Hours): Last Vital Signs Temp 37.0 C 12/17/18 16:15 Pulse 98 H 12/17/18 16:15 Resp 18 12/17/18 16:15 BP 131/89 12/17/18 16:15 Pulse Ox 98 12/17/18 14:30
[2018-12-17] MEDS ORDERED: BISACODYL 5 MG TABEC PO SCH (20:00)
--- NOTE | 2018-12-17 23:31 | Obstetrical Progress Note ---
Date of Service December 17, 2018 Subjective I checked in on patient. She has completed Zosyn, and has been afebrile for >24h (not counting the elevated temp this afternoon that was normal when rechecked within 10 minutes). She is ambulating in the room, stating "I need to leave, I am feeling much better." Blood pressure was 159/109. I discussed with her that I'd like to recheck her BP after her sitting for a few minutes before her leaving. She states she knows it will be high again and refuses recheck. She believes her BP is now very high because she just deduced that the baby admitted to the hospital room next door has RSV (because of the isolation cart outside of the room in the mulligan, and she can hear the baby coughing from the hallway). She had her baby here visiting earlier in the day, and is now very concerned that she could have exposed her baby to RSV. She is feeling very guilty about this and states she suddenly felt her heart racing and panic-like symptoms when she discovered the baby with RSV admitted next door. She feels that her elevated BP is directly related to this and that it will not go down until she leaves the hospital. She states "there is no way I'm staying here tonight." After I left the room, she stated to Kevin Morrell RN that she needs to leave, but will not sign out AMA because her insurance will not pay for it. We discussed discharge planning - she has an appointment with PCP within the next week for a visit to establish care and to have her blood pressure checked. She will also discuss with her PCP her anxiety symptoms and potential treatment for this. She will followup in OBGYN office in 6 weeks. She is aware to contact the office immediately if she develops worsening headache, vision changes, RUQ pain, return of fever/chills, nausea/vomiting, or any other worsening symptoms. She is agreeable to this and states she is ready to go home right now. Physical Exam Vital Signs (Past 24 Hours): Last Vital Signs Temp 36.8 C 12/17/18 19:30 Pulse 89 12/17/18 19:30 Resp 20 12/17/18 19:30 BP 155/97 H 12/17/18 19:30 Pulse Ox 98 12/17/18 14:30
--- NOTE | 2018-12-17 23:36 | Discharge Summary ---
Date of Service December 17, 2018 Admission HPI Per Admitting Provider The patient is a 28-year-old 1 para 1 who presented to the emergency room for evaluation of fever and chills. The patient is status post a primary section after a failure to descend with a prolonged second stage. The patient states that at home she began spiking fevers with shaking chills. She has some generalized breast tenderness but denies any erythema. She does not complaining of any lower abdominal cramping. Patient is having trouble with constipation. The patient took Tylenol at home which brought her temperature down temporarily but returned shortly thereafter. The patient presented to the emergency room for evaluation was noted to have a temp of 39.4 with an elevated white count. Admission Exam (Per Admitting) Constitutional Please see H&P Discharge Data Consultations 12/16/18 22:28 ED Decision to Admit Stat 12/17/18 03:51 Consult Hospitalist Stat Hospital Course (1) fever: Patient is a 28-year-old who presented on postoperative day 4 to the emergency department for evaluation of fever and chills. She delivered by section after failure to descend with prolonged second stage. Upon admission, she had reported fevers at home with shaking and chills, temp in the emergency department was 39.4 with an elevated white count. She was started on gentamicin and Clinda in the emergency department, and plan was to add ampicillin if needed. However, patient developed chest pain upon administration of clindamycin, so this was changed to Zosyn. Patient underwent preeclampsia labs on admission, and this was ruled out. Not any physician group hospitalist group was consulted due to patient's chest pain. On-call hospitalist completed CT angiography and DVT studies. CT angiography was negative for pulmonary embolism, Doppler studies of the lower extremities were negative, troponins for cardiac injury were also negative. On hospital day 2, patient had labile blood pressures, repeat preeclampsia labs were performed. These were again negative. Patient continued Zosyn. She did have one additional elevated blood pressure, however upon her own recheck of it in the room within 10 minutes of the original elevated blood pressure at 1430 today, she stated her repeat was normal. Given patient's negative workup, improving labs, negative preeclampsia labs, and her dramatic improvement in feeling better, and her strong desire to go home this evening, she was discharged home. Plan is for her to follow-up in the [facility] office in 6 weeks for a visit. She has an appointment with a primary care provider in 1 week for establishment of care and blood pressure check. She is agreeable to this plan, and really desires to be discharged immediately. Discharge Instructions please see instructions provided to patient
--- NOTE | 2018-12-18 13:05 | Anesthesiology Progress Note ---
Date of Service December 18, 2018 Anesthesia Post Procedure Vital Signs Vital Signs: Temp Pulse Resp BP Pulse Ox 12/17/18 23:29 37.0 C 92 H 20 158/109 H 98 12/17/18 23:00 37.0 C 92 H 20 158/109 H 12/17/18 19:30 36.8 C 89 20 155/97 H 12/17/18 16:15 37.0 C 98 H 18 131/89 12/17/18 14:30 38.4 C H 115 H 20 142/97 H 98 Pain Intensity Abdomen: Pain Intensity: 10 Head: Pain Intensity: 5 Notes Notes: Followed up with Ms. Howard by phone today. She was discharged last night from the hospital after representing with a fever. She reports today that she continues to have a headache that responds to a single dose of Fiorecet each day. The headache does NOT interfere in her activities of daily living or in her ability to care for the baby. At this time, since her headache responds to medications and is not interefering in her dialy activities, we would continue to recommend conservative management (rest, fluids, caffeine, pain medicine). I encouraged her to contact the anesthesia department with any concerns or to contact us if she develops any neurological changes or if her headache worsens. The patient is in agreement.
== END 2018-12-17 23:40 | disposition home or self-care (01) ==
LOC: 4N 17:37 → ED 17:37 → 4N 23:09